=== PATIENT | male | born 1940 | race Hispanic/Latino ===

== ENCOUNTER 2018-11-05 14:07 | Emergency (ER) | payer OTHER ==
[2018-11-05 14:50] LABS: Absolute Lymphocytes (CBC) 1.3 K/uL (0.7-4.9); Absolute Monocytes 0.7 K/uL (0.1-1.3); Absolute Neutrophil 3.3 K/uL (1.8-8.0); Basophils % 0.4 % (0-1.3); Lymphocytes % 24.2 % (15.3-44.8); MPV 8.1 fL (7.6-11.3); Monocytes % 12.2 % (3.3-12.3); RBC Red Blood Cell Count 3.85 M/uL (4.33-5.43)
[2018-11-05 14:58] LABS: ALT/SGPT 19 U/L (12-78); AST/SGOT 21 U/L (15-37); Albumin 3.6 g/dL (3.4-5.0); Alkaline Phosphatase 59 U/L (45-117); BUN Blood Urea Nitrogen 14 mg/dL (7-18); Bicarbonate 25 mmol/L (21-32); Bilirubin Direct 0.3 mg/dL (0-0.2); Bilirubin Total 1.2 mg/dL (0.2-1.0); Glucose Level 118 mg/dL (74-106); NT PRO-BNP 156 pg/mL (<450); Potassium 4.1 mmol/L (3.5-5.1); Protein, Total 7.1 g/dL (6.4-8.2); Protime INR 1.12; Sodium Level 140 mmol/L (136-145); Troponin (Emerg Dept Use Only) < 0.02 ng/mL (0.0-0.045)
--- NOTE | 2018-11-05 15:25 | RAD REPORT ---
EXAM DESCRIPTION: RAD - Chest Single View - 11/05/2018 2:39 pm CLINICAL HISTORY: Chest pain COMPARISON: January 2017 TECHNIQUE: AP portable chest image was obtained 1437 hours . FINDINGS: Lungs are clear. Heart and vasculature are normal. No measurable pleural effusion and no p neumothorax. No acute bony abnormality seen. No acute aortic findings suspected. IMPRESSION: No acute cardiopulmonary process. No significant change from comparison.
--- NOTE | 2018-11-05 18:05 | ER ---
Nurse's Notes [facility] Name: Angelito Ayala Age: 78 yrs Sex: Male : 1940 Arrival Date: 11/05/2018 Time: 14:09 Bed 24 Private MD: Diagnosis: Cough;atypical chest pain Presentation: 11/05 14:09 Presenting complaint: Patient states: i started chest pain last Sunday, feeling of hj tightness, i could hardly speak then; then the pain becomes sharp; reports pain moves to the back; 0/10; denies fever and chills; denies SOB; [facility] eval;. Transition of care: patient was not received from another setting of care. Onset of symptoms was November 05, 2018. Risk Assessment: Do you want to hurt yourself or someone else? Patient reports no desire to harm self or others. Initial Sepsis Screen: Does the patient meet any 2 criteria? No. Patient's initial sepsis screen is negative. Does the patient have a suspected source of infection? No. Patient's initial sepsis screen is negative. 14:09 Method Of Arrival: Ambulatory 14:09 Acuity: TESSY 3 hj 14:14 Care prior to arrival: None. hj Historical: - Allergies: 14:13 No Known Allergies; hj - PMHx: 14:13 benign neoplasm of colon; cardiomyopathy; Cellulitis; Coronary Arteriosclerosis; hj Diabetes - NIDDM; elevated liver function tests; esophageal varices without mention of bleeding; Hyperlipidemia; Hypertension; neck pain; Open Angle Glaucoma; rectal bleeding; sexual dysfunction; TIA; - PSHx: 14:13 coronary stent; hj - Immunization history:: Adult Immunizations up to date. - Social history:: Smoking status: Patient/guardian denies using tobacco. Screenin:37 Abuse screen: Denies threats or abuse. Denies injuries from another. Nutritional aj screening: No deficits noted. Tuberculosis screening: No symptoms or risk factors identified. Fall Risk None identified. Assessment: 14:37 General: Appears in no apparent distress. comfortable, Behavior is calm, cooperative, aj appropriate for age. Pain: Denies pain. Neuro: Level of Consciousness is awake, alert, obeys commands, Oriented to person, place, time, situation, Appropriate for age. Cardiovascular: Reports chest pain, Capillary refill < 3 seconds in bilateral fingers Patient's skin is warm and dry. Chest pain is located in substernal area episodes are intermittent resolved. Respiratory: Reports cough that is Airway is patent Respiratory effort is even, unlabored, Respiratory pattern is regular, symmetrical. Derm: Skin is intact, is healthy with good turgor, Skin is pink, warm \T\ dry. normal. Vital Signs: 14:13 BP 115 / 59; Pulse 59; Resp 18; Temp 98.2(O); Pulse Ox 96% on R/A; Weight 81.65 kg; hj Height 5 ft. 7 in. (170.18 cm); Pain 0/10; 14:50 BP 113 / 64; Pulse 57; Resp 20; Pulse Ox 95% on R/A; aj 16:26 BP 116 / 67; Pulse 58; Resp 16; Pulse Ox 98% on R/A; aj 18:01 BP 109 / 78; Pulse 61; Resp 18; Pulse Ox 97% on R/A; aj 14:13 Body Mass Index 28.19 (81.65 kg, 170.18 cm) ED Course: 14:09 Patient arrived in ED. mr 14:12 Triage completed. hj 14:14 Arm band placed on right wrist. hj 14:15 Jean-Paul Solomon MD is Attending Physician. tw4 14:28 EKG done, by patient care technician. reviewed by Jean-Paul Solomon MD. sm3 14:30 Mackenzie Rinaldi, LAMAR is Primary Nurse. aj 14:34 X-ray completed. Portable x-ray completed in exam room. Patient tolerated procedure sw well. 14:34 Initial lab(s) drawn, by or, sent to lab. Inserted saline lock: 22 gauge in right kj1 antecubital area, using aseptic technique. 14:37 Patient has correct armband on for positive identification. Placed in gown. Bed in low aj position. Call light in reach. Side rails up X 1. Adult w/ patient. gambling monitor on. Pulse ox on. NIBP on. 14:37 Patient maintains SpO2 saturation greater than 95% on room air. aj 14:41 XRAY Chest (1 view) In Process Unspecified. EDMS 18:16 No provider procedures requiring assistance completed. IV discontinued, intact, aj bleeding controlled, No redness/swelling at site. Pressure dressing applied. Administered Medications: No medications were administered Outcome: 18:04 Discharge ordered by . sunny 18:16 Discharged to home ambulatory. carol ann 18:16 Condition: good 18:16 Discharge instructions given to patient, Instructed on discharge instructions, follow up and referral plans. medication usage, Demonstrated understanding of instructions, follow-up care, medications, Prescriptions given X 2. 18:16 Patient left the ED. aj Signatures: Dispatcher [employer] EDMS Mackenzie Rnialdi RN RN aj Rivera, Mary mr OmarKailey Henry, RN RN hj Wadley, Terrence, MD MD tw4 Martha Rios3 Darlene Haq kj1
--- NOTE | 2018-11-05 18:05 | EDPHYS ---
Physician Documentation [facility] Name: Angelito Ayala Age: 78 yrs Sex: Male : 1940 Arrival Date: 11/05/2018 Time: 14:09 Bed 24 Private MD: ED Physician Jean-Paul Solomon HPI: 11/05 16:57 This 78 yrs old Male presents to ER via Ambulatory with complaints of Chest tw4 Pain. 16:57 The patient or guardian reports chest pain that is located primarily in the anterior tw4 chest wall. The pain does not radiate. Associated signs and symptoms: The patient has no apparent associated signs or symptoms. Duration: The patient or guardian reports a single episode. Severity of pain: At its worst the pain was moderate. The patient has not experienced similar symptoms in the past. 17:59 Onset: 2 day(s) ago, and improved 2 days ago. tw4 Historical: - Allergies: 14:13 No Known Allergies; hj - PMHx: 14:13 benign neoplasm of colon; cardiomyopathy; Cellulitis; Coronary Arteriosclerosis; hj Diabetes - NIDDM; elevated liver function tests; esophageal varices without mention of bleeding; Hyperlipidemia; Hypertension; neck pain; Open Angle Glaucoma; rectal bleeding; sexual dysfunction; TIA; - PSHx: 14:13 coronary stent; hj - Immunization history:: Adult Immunizations up to date. - Social history:: Smoking status: Patient/guardian denies using tobacco. ROS: 16:57 Constitutional: Negative for fever, chills, and weight loss, Eyes: Negative for injury, tw4 pain, redness, and discharge, Respiratory: Negative for shortness of breath, cough, wheezing, and pleuritic chest pain, Abdomen/GI: Negative for abdominal pain, nausea, vomiting, diarrhea, and constipation, Back: Negative for injury and pain, MS/Extremity: Negative for injury and deformity, Skin: Negative for injury, rash, and discoloration. Exam: 16:02 Constitutional: This is a well developed, well nourished patient who is awake, alert, tw4 and in no acute distress. Head/Face: Normocephalic, atraumatic. Chest/axilla: Normal chest wall appearance and motion. Nontender with no deformity. No lesions are appreciated. Cardiovascular: Regular rate and rhythm with a normal S1 and S2. No gallops, murmurs, or rubs. Normal PMI, no JVD. No pulse deficits. Respiratory: Lungs have equal breath sounds bilaterally, clear to auscultation and percussion. No rales, rhonchi or wheezes noted. No increased work of breathing, no retractions or nasal flaring. Abdomen/GI: Soft, non-tender, with normal bowel sounds. No distension or tympany. No guarding or rebound. No evidence of tenderness throughout. Back: No spinal tenderness. No costovertebral tenderness. Full range of motion. MS/ Extremity: Pulses equal, no cyanosis. Neurovascular intact. Full, normal range of motion. Neuro: Awake and alert, GCS 15, oriented to person, place, time, and situation. Cranial nerves II-XII grossly intact. Motor strength 5/5 in all extremities. Sensory grossly intact. Cerebellar exam normal. Normal gait. Vital Signs: 14:13 BP 115 / 59; Pulse 59; Resp 18; Temp 98.2(O); Pulse Ox 96% on R/A; Weight 81.65 kg; hj Height 5 ft. 7 in. (170.18 cm); Pain 0/10; 14:50 BP 113 / 64; Pulse 57; Resp 20; Pulse Ox 95% on R/A; aj 16:26 BP 116 / 67; Pulse 58; Resp 16; Pulse Ox 98% on R/A; aj 18:01 BP 109 / 78; Pulse 61; Resp 18; Pulse Ox 97% on R/A; aj 14:13 Body Mass Index 28.19 (81.65 kg, 170.18 cm) MDM: 14:15 Patient medically screened. tw4 16:57 Differential diagnosis: acute myocardial infarction, pulmonary embolus. Data reviewed: tw4 vital signs, nurses notes. Counseling: I had a detailed discussion with the patient and/or guardian regarding: the historical points, exam findings, and any diagnostic results supporting the discharge/admit diagnosis. Special discussion: Based on the patient's history, exam, and Dx evaluation, there is no indication for emergent intervention or inpatient Tx. It is understood by the patient/guardian that if the Sx's persist or worsen they need to return immediately for re-evaluation. I discussed with the patient/guardian in detail that at this point there is no indication for admission to the hospital. It is understood, however, that if the symptoms persist or worsen the patient needs to return immediately for re-evaluation. 11/05 14:16 Order name: Basic Metabolic Panel; Complete Time: 17:59 [facility] 11/05 17:58 Interpretation: Normal except: CL 108; GLUC 118; GFR 67. 11/05 14:16 Order name: CBC with Diff; Complete Time: 17:59 [facility] 11/05 17:58 Interpretation: Normal except: RBC 3.85; HGB 10.9; HCT 33.0; MCV 85.6; RDW 15.5. 11/05 14:16 Order name: LFT's; Complete Time: 17:59 [facility] 11/05 17:59 Interpretation: Normal except: BILIT 1.2; BILID 0.3; A/G 1.0. 11/05 14:16 Order name: Magnesium; Complete Time: 18:00 [facility] 11/05 14:16 Order name: NT PRO-BNP; Complete Time: 18:00 [facility] 11/05 17:59 Interpretation: NT PRO-BNP 156. [facility] 11/05 14:16 Order name: PT-INR; Complete Time: 17:59 [facility] 11/05 17:59 Interpretation: Normal except: PT 13.2. [facility] 11/05 14:14 Order name: EKG - Nurse/Tech; Complete Time: 14:24 11/05 14:16 Order name: Troponin (emerg Dept Use Only) [facility] 11/05 14:16 Order name: XRAY Chest (1 view) [facility] 11/05 14:16 Order name: EKG; Complete Time: 14:18 [facility] 11/05 14:16 Order name: Cardiac monitoring; Complete Time: 14:52 [facility] 11/05 14:16 Order name: EKG - Nurse/Tech; Complete Time: 14:52 [facility] 11/05 14:16 Order name: IV Saline Lock; Complete Time: 14:52 [facility] 11/05 16:54 Order name: Troponin (emerg Dept Use Only) 11/05 14:16 Order name: Labs collected and sent; Complete Time: 14:52 [facility] 11/05 14:16 Order name: O2 Per Protocol; Complete Time: 14:52 [facility] 11/05 14:16 Order name: O2 Sat Monitoring; Complete Time: 14:52 tw4 EC:02 Rate is 54 beats/min. Rhythm is regular. QRS [place] is Normal. QRS interval is normal. QT tw4 interval is normal. No Q waves. T waves are Inverted in lead III. No ST changes noted. Clinical impression: NSR w/ Non-specific ST/T Changes. Interpreted by me. Reviewed by me. Administered Medications: No medications were administered Disposition: 11/05/18 18:04 Discharged to Home. Impression: Cough, atypical chest pain. - Condition is Stable. - Discharge Instructions: Back Pain, Adult, Cool Mist Vaporizer, Allergies, [id number]. - Prescriptions for Tessalon Perles 100 mg Oral Capsule - take 1 capsule by ORAL route every 8 hours As needed; 15 capsule. Tramadol 50 mg Oral Tablet - take 1 tablet by ORAL route every 8 hours as needed; 12 tablet. - Medication Reconciliation Form, Thank You Letter, Antibiotic Education, Prescription Opioid Use form. - Follow up: Private Physician; When: Upon discharge from the Emergency Department; Reason: If symptoms return, Recheck today's complaints, Continuance of care. - Problem is new. - Symptoms have improved. Signatures: Dispatcher [employer] EDMackenzie Avilez RN RN aj Joaquin, Henry, RN RN hj Wadley, Terrence, MD MD tw4 Corrections: (The following items were deleted from the chart) 18:04 16:57 Onset: today, tw4 tw4 18:16 18:04 11/05/2018 18:04 Discharged to Home. Impression: Cough; atypical chest pain. aj Condition is Stable. Forms are Medication Reconciliation Form, Thank You Letter, Antibiotic Education, Prescription Opioid Use. Follow up: Private Physician; When: Upon discharge from the Emergency Department; Reason: If symptoms return, Recheck today's complaints, Continuance of care. Problem is new. Symptoms have improved. tw4
--- NOTE | 2018-11-06 06:18 | EKG ---
Test Date: 2018-11-05 Test Time: 14:25:37 Registered Dietitian: LISET MEASUREMENT RESULTS: Intervals: Rate: 54 ME: 180 QRSD: 138 QT: 472 QTc: 447 [place]: P: 44 ME: 180 QRS: 74 T: 36 INTERPRETIVE STATEMENTS: Sinus bradycardia Right bundle branch block Abnormal ECG Compared to ECG 01/30/2017 17:10:42 Right bundle-branch block now present Sinus rhythm no longer present T-wave abnormality no longer present Electronically Signed On 11-06-18 06:17:10 CDT by Hemanth Castañeda
== END 2018-11-05 18:16 | disposition home or self-care (01) ==
LOC: ER 14:07
DX: R05 Cough (principal); I10 Essential (primary) hypertension; Z95.818 Presence of other cardiac implants and grafts
CPT/HCPCS: 36415; 71045; 80048; 80076; 83735; 83880; 84484; 85025; 85610; 93005; 99285

== ENCOUNTER 2019-06-11 13:28 | Observation (INO) | payer OTHER ==
[2019-06-11 14:38] LABS: Protime INR 1.15
[2019-06-11 14:40] LABS: Absolute Lymphocytes (CBC) 0.7 K/uL (0.7-4.9); Basophils % 0.6 % (0-1.3); Hematocrit 31.1 % (39.6-49.0); Lymphocytes % 14.8 % (15.3-44.8); RBC Red Blood Cell Count 4.11 M/uL (4.33-5.43)
--- NOTE | 2019-06-11 14:42 | EKG ---
Test Date: 2019-06-11 Test Time: 14:11:22 Lathe Operator Contact Lens: SUSAN MEASUREMENT RESULTS: Intervals: Rate: 75 [place]: 178 QRSD: 134 QT: 410 QTc: 457 [place]: P: 53 KS: 178 QRS: 79 T: 33 INTERPRETIVE STATEMENTS: Normal sinus rhythm Right bundle branch block Abnormal ECG Compared to ECG 11/05/2018 14:25:37 Sinus bradycardia no longer present Electronically Signed On 06-11-19 14:41:58 BLANKET CUTTER HAND by Hemanth Castañeda
[2019-06-11] MEDS ORDERED: CEFTRIAXONE 1000 MG/VIAL ONE (14:45)
[2019-06-11] MEDS ORDERED: LEVALBUTEROL 1.25 MG/3 ML NEB ONE (14:45)
[2019-06-11] MEDS ORDERED: IPRATROPIUM BROM 0.5MG/2.5ML ONE (14:45)
[2019-06-11] MEDS ORDERED: AZITHROMYCIN 500 MG INJ IVPB ONE (14:46)
[2019-06-11] MEDS ORDERED: NACHLORIDE 0.45% 0 ML IV ONE (14:46)
[2019-06-11] MEDS ORDERED: NA CHLORIDE 0.9% 1,000 ML ONE (14:47)
[2019-06-11] MEDS ORDERED: ACETAMINOPHEN 325 MG TABLET ONE (14:47)
[2019-06-11] MEDS ORDERED: METHYLPREDNISOLONE 125 MG INJ ONE (14:47)
[2019-06-11 14:55] LABS: Albumin 3.3 g/dL (3.4-5.0); Bilirubin Direct 0.4 mg/dL (0-0.2); Bilirubin Total 1.8 mg/dL (0.2-1.0); Protein, Total 6.8 g/dL (6.4-8.2)
[2019-06-11 14:56] LABS: BUN Blood Urea Nitrogen 11 mg/dL (7-18); Bicarbonate 23 mmol/L (21-32); Glucose Level 191 mg/dL (74-106); Magnesium 1.9 mg/dL (1.8-2.4); NT PRO-BNP 320 pg/mL (<450); Potassium 3.9 mmol/L (3.5-5.1); Sodium Level 137 mmol/L (136-145); Troponin (Emerg Dept Use Only) < 0.02 ng/mL (0.0-0.045)
[2019-06-11] MEDS ORDERED: NA CHLORIDE 0.9% 250 ML ONE (15:22)
--- NOTE | 2019-06-11 15:43 | ER ---
Nurse's Notes [facility] Name: Angelito Ayala Age: 78 yrs Sex: Male : 1940 Arrival Date: 06/11/2019 Time: 13:30 Bed 26 Private MD: Diagnosis: Weakness;Pneumonia due to other specified bacteria;Fever, unspecified;Anemia, unspecified Presentation: 06/11 13:33 Transition of care: patient was not received from another setting of care. sv 13:33 Method Of Arrival: Ambulatory sv 13:33 Presenting complaint: Patient states: intermittent small amount of a productive cough, sv congestion, dizziness x 3 days. Onset of symptoms was June 08, 2019. Care prior to arrival: None. 13:33 Acuity: TESSY 3 sv Historical: - Allergies: 13:32 No Known Allergies; sv - PMHx: 13:32 esophageal varices without mention of bleeding; elevated liver function tests; Coronary sv Arteriosclerosis; Diabetes - NIDDM; Open Angle Glaucoma; rectal bleeding; cardiomyopathy; benign neoplasm of colon; Cellulitis; Hyperlipidemia; Hypertension; neck pain; sexual dysfunction; TIA; - PSHx: 13:32 coronary stent; sv - Family history:: not pertinent. Vital Signs: 13:35 BP 141 / 51; Pulse 74; Resp 20; Temp 100.1; Pulse Ox 97% ; Weight 81.65 kg; Height 5 sv ft. 7 in. (170.18 cm); 13:35 Body Mass Index 28.19 (81.65 kg, 170.18 cm) sv ED Course: 13:30 Patient arrived in ED. as 13:32 Arm band placed on. sv 13:35 Triage completed. sv 13:56 Ivet Zamarripa, RN is Primary Nurse. ls4 13:58 Luek Geiger MD is Attending Physician. osmin 14:16 Initial lab(s) drawn, by vt, sent to lab. First set of blood cultures drawn by me, EKG lt1 done, by sr technical sales consultant. Flu and/or RSV swab sent to lab. 14:21 Inserted saline lock: 22 gauge in right hand, using aseptic technique. lt1 14:23 Influenza Screen (a \T\ B) Sent. lt1 14:24 EKG done, by sr technical sales consultant. reviewed by Luke Geiger MD. tc 14:44 XRAY Chest (1 view) In Process Unspecified. EDMS 14:51 Second set of blood cultures drawn by me. lt1 15:41 Estefania Walker MD is Hospitalizing Provider. osmin Administered Medications: 14:47 Drug: Zithromax 500 mg Route: IVPB; Infused Over: 1 hrs; Site: right hand; ls4 15:20 Follow up: IV Intake: 1000ml ls4 16:49 Follow up: IV Status: Completed infusion; IV Intake: 250ml dm5 14:48 Drug: Rocephin 1 grams Route: IV; Rate: per protocol; Site: right hand; ls4 15:20 Follow up: IV Status: Completed infusion; IV Intake: 1000ml ls4 14:52 Drug: Tylenol 650 mg Route: PO; ls4 15:20 Follow up: Response: No adverse reaction ls4 15:20 Follow up: Response: No adverse reaction; Marked relief of symptoms ls4 14:52 Drug: SOLU-Medrol 125 mg Route: IVP; Site: right hand; ls4 15:20 Follow up: Response: No adverse reaction ls4 16:20 Follow up: Response: No adverse reaction ls4 23:00 Follow up: Response: No adverse reaction ls4 14:53 Drug: NS 0.9% 1000 ml Route: IV; Rate: 125 ml/hr; Site: right hand; ls4 16:00 Follow up: IV Status: Completed infusion; IV Intake: 1000ml ls4 14:53 Drug: Xopenex 2.5 mg Route: Inhalation; ls4 15:20 Follow up: Response: No adverse reaction ls4 14:53 Drug: AtroVENT Aerosol 0.5 mg Route: Inhalation; ls4 15:20 Follow up: Response: No adverse reaction ls4 16:55 Not Given (Duplicate Order): Xopenex 1.25 mg Inhalation once dm5 Intake: 15:20 IV: 1000ml; Total: 1000ml. ls4 15:20 IV: 1000ml; Total: 2000ml. ls4 16:00 IV: 1000ml; Total: 3000ml. ls4 16:49 IV: 250ml; Total: 3250ml. dm5 Outcome: 15:42 Decision to Hospitalize by Provider. osmin 18:12 Patient left the ED. iw Signatures: Dispatcher [employer] Johanne Mitchell RN RN Juhi Landry, RN Luke Cuevas MD MD cha Martinez, Amelia as Audrey Granado, LAMAR RN Conchita Willson, junior oracle dba EKG [facility] Ivet Zamarripa RN RN ls4 Lisa Triplett lt1 Corrections: (The following items were deleted from the chart) 23:18 23:15 IV Status: Completed infusion; IV Intake: 1000ml ls4 ls4
--- NOTE | 2019-06-11 15:43 | EDPHYS ---
Physician Documentation [facility] Name: Angelito Ayala Age: 78 yrs Sex: Male : 1940 Arrival Date: 06/11/2019 Time: 13:30 Bed 26 Private MD: ED Physician Luke Geiger HPI: 06/11 14:27 This 78 yrs old Male presents to ER via Ambulatory with complaints of Cough, osmin Dizziness. 14:27 The patient or guardian reports cough, described as moderate. Onset: The osmin symptoms/episode began/occurred 3 day(s) ago. Severity of symptoms: At their worst the symptoms were mild, in the emergency department the symptoms are unchanged. Modifying factors: The symptoms are alleviated by nothing, the symptoms are aggravated by nothing. Associated signs and symptoms: The patient has no apparent associated signs or symptoms. The patient has not experienced similar symptoms in the past. Historical: - Allergies: 13:32 No Known Allergies; sv - PMHx: 13:32 esophageal varices without mention of bleeding; elevated liver function tests; Coronary sv Arteriosclerosis; Diabetes - NIDDM; Open Angle Glaucoma; rectal bleeding; cardiomyopathy; benign neoplasm of colon; Cellulitis; Hyperlipidemia; Hypertension; neck pain; sexual dysfunction; TIA; - PSHx: 13:32 coronary stent; sv - Family history:: not pertinent. ROS: 14:27 Constitutional: Negative for fever, chills, and weight loss, Eyes: Negative for injury, osmin pain, redness, and discharge, ENT: Negative for injury, pain, and discharge, Neck: Negative for injury, pain, and swelling, Cardiovascular: Negative for chest pain, palpitations, and edema, Abdomen/GI: Negative for abdominal pain, nausea, vomiting, diarrhea, and constipation, Back: Negative for injury and pain, : Negative for injury, bleeding, discharge, and swelling, MS/Extremity: Negative for injury and deformity, Skin: Negative for injury, rash, and discoloration, Psych: Negative for depression, anxiety, suicide ideation, homicidal ideation, and hallucinations, Allergy/Immunology: Negative for hives, rash, and allergies, Endocrine: Negative for neck swelling, polydipsia, polyuria, polyphagia, and marked weight changes, Hematologic/Lymphatic: Negative for swollen nodes, abnormal bleeding, and unusual bruising. 14:27 Respiratory: Positive for cough, shortness of breath, wheezing. 14:27 Neuro: Positive for weakness. Exam: 14:27 Head/Face: Normocephalic, atraumatic. Eyes: Pupils equal round and reactive to light, osmin extra-ocular motions intact. Lids and lashes normal. Conjunctiva and sclera are non-icteric and not injected. Cornea within normal limits. Periorbital areas with no swelling, redness, or edema. ENT: Nares patent. No nasal discharge, no septal abnormalities noted. Tympanic membranes are normal and external auditory canals are clear. Oropharynx with no redness, swelling, or masses, exudates, or evidence of obstruction, uvula midline. Mucous membranes moist. Neck: Trachea midline, no thyromegaly or masses palpated, and no cervical lymphadenopathy. Supple, full range of motion without nuchal rigidity, or vertebral point tenderness. No Meningismus. Chest/axilla: Normal chest wall appearance and motion. Nontender with no deformity. No lesions are appreciated. Cardiovascular: Regular rate and rhythm with a normal S1 and S2. No gallops, murmurs, or rubs. Normal PMI, no JVD. No pulse deficits. Abdomen/GI: Soft, non-tender, with normal bowel sounds. No distension or tympany. No guarding or rebound. No evidence of tenderness throughout. Back: No spinal tenderness. No costovertebral tenderness. Full range of motion. Male : Normal genitalia with no discharge or lesions. Skin: Warm, dry with normal turgor. Normal color with no rashes, no lesions, and no evidence of cellulitis. MS/ Extremity: Pulses equal, no cyanosis. Neurovascular intact. Full, normal range of motion. Neuro: Awake and alert, GCS 15, oriented to person, place, time, and situation. Cranial nerves II-XII grossly intact. Motor strength 5/5 in all extremities. Sensory grossly intact. Cerebellar exam normal. Normal gait. Psych: Awake, alert, with orientation to person, place and time. Behavior, mood, and affect are within normal limits. 14:27 Constitutional: The patient appears febrile. 14:27 Respiratory: the patient does not display signs of respiratory distress, Respirations: normal, no acute changes, Breath sounds: bronchial sounds, rhonchi, wheezing: inspiratory expiratory is scattered. 14:27 Musculoskeletal/extremity: DVT Exam: No signs of deep vein thrombosis. no pain, no swelling, no tenderness, negative Homans' sign noted on exam, no appreciated bluish discoloration, no erythema, no increased warmth. Vital Signs: 13:35 BP 141 / 51; Pulse 74; Resp 20; Temp 100.1; Pulse Ox 97% ; Weight 81.65 kg; Height 5 sv ft. 7 in. (170.18 cm); 13:35 Body Mass Index 28.19 (81.65 kg, 170.18 cm) sv MDM: 13:58 Patient medically screened. [facility] 14:29 Data reviewed: vital signs, nurses notes, lab test result(s), EKG, radiologic studies, [facility] plain films. 06/11 13:57 Order name: CBC with Diff; Complete Time: 15:34 [facility] 06/11 13:57 Order name: Blood Culture Adult (2) [facility] 06/11 13:57 Order name: BMP; Complete Time: 15:34 [facility] 06/11 13:57 Order name: Magnesium; Complete Time: 15:34 [facility] 06/11 13:57 Order name: NT PRO-BNP; Complete Time: 15:34 [facility] 06/11 13:57 Order name: PT-INR; Complete Time: 15:34 [facility] 06/11 13:57 Order name: Ptt, Activated; Complete Time: 15:34 [facility] 06/11 13:57 Order name: Troponin (emerg Dept Use Only); Complete Time: 15:34 [facility] 06/11 13:59 Order name: LFT's; Complete Time: 15:34 [facility] 06/11 13:59 Order name: XRAY Chest (1 view) [facility] 06/11 14:00 Order name: Influenza Screen (a \T\ B); Complete Time: 15:40 [facility] 06/11 13:57 Order name: EKG; Complete Time: 13:58 [facility] 06/11 13:57 Order name: Cardiac monitoring; Complete Time: 14:22 [facility] 06/11 13:57 Order name: EKG - Nurse/Tech; Complete Time: 14:22 [facility] 06/11 13:57 Order name: IV Saline Lock; Complete Time: 14:23 [facility] 06/11 13:57 Order name: Labs collected and sent; Complete Time: 14:23 [facility] 06/11 13:57 Order name: O2 Per Protocol; Complete Time: 14:23 [facility] 06/11 13:57 Order name: O2 Sat Monitoring; Complete Time: 14:23 ls4 Administered Medications: 14:47 Drug: Zithromax 500 mg Route: IVPB; Infused Over: 1 hrs; Site: right hand; ls4 15:20 Follow up: IV Intake: 1000ml ls4 16:49 Follow up: IV Status: Completed infusion; IV Intake: 250ml dm5 14:48 Drug: Rocephin 1 grams Route: IV; Rate: per protocol; Site: right hand; ls4 15:20 Follow up: IV Status: Completed infusion; IV Intake: 1000ml ls4 14:52 Drug: Tylenol 650 mg Route: PO; ls4 15:20 Follow up: Response: No adverse reaction ls4 15:20 Follow up: Response: No adverse reaction; Marked relief of symptoms ls4 14:52 Drug: SOLU-Medrol 125 mg Route: IVP; Site: right hand; ls4 15:20 Follow up: Response: No adverse reaction ls4 16:20 Follow up: Response: No adverse reaction ls4 23:00 Follow up: Response: No adverse reaction ls4 14:53 Drug: NS 0.9% 1000 ml Route: IV; Rate: 125 ml/hr; Site: right hand; ls4 16:00 Follow up: IV Status: Completed infusion; IV Intake: 1000ml ls4 14:53 Drug: Xopenex 2.5 mg Route: Inhalation; ls4 15:20 Follow up: Response: No adverse reaction ls4 14:53 Drug: AtroVENT Aerosol 0.5 mg Route: Inhalation; ls4 15:20 Follow up: Response: No adverse reaction ls4 16:55 Not Given (Duplicate Order): Xopenex 1.25 mg Inhalation once dm5 Disposition: 06/11/19 15:42 Hospitalization ordered by Estefania Walker for Inpatient Admission. Preliminary diagnosis are Weakness, Pneumonia due to other specified bacteria, Fever, unspecified, Anemia, unspecified. - Bed requested for Telemetry/MedSurg (Inpatient). - Status is Inpatient Admission. iw - Condition is Fair. - Problem is new. - Symptoms have improved. UTI on Admission? No Signatures: Dispatcher [employer] EDMary Bansal Stephanie, RN RN sv Anderson, Corey, MD MD cha Williams, Irene, RN RN iw Ivet Zamarripa RN RN ls4 Johanne Mccarty RN dm5 Corrections: (The following items were deleted from the chart) 16:36 15:42 Hospitalization Ordered by Estefania Walker MD for Inpatient Admission. Preliminary bd diagnosis is Weakness; Pneumonia due to other specified bacteria; Fever, unspecified; Anemia, unspecified. Bed requested for Telemetry/MedSurg (Inpatient). Status is Inpatient Admission. Condition is Fair. Problem is new. Symptoms have improved. UTI on Admission? No. osmin 18:12 16:36 06/11/2019 15:42 Hospitalization Ordered by Estefania Walker MD for Inpatient iw Admission. Preliminary diagnosis is Weakness; Pneumonia due to other specified bacteria; Fever, unspecified; Anemia, unspecified. Bed requested for Telemetry/MedSurg (Inpatient). Status is Inpatient Admission. Condition is Fair. Problem is new. Symptoms have improved. UTI on Admission? No. bd
[2019-06-11] MEDS ORDERED: ALBUTEROL 2.5 MG/3 ML NEB SOL NEB PRN (16:17)
--- NOTE | 2019-06-11 16:22 | P.HP ---
Certification for Inpatient Patient admitted to: Observation Practitioner: I am a practitioner with admitting privileges, knowledge of patient current condition, hospital course, and medical plan of care. Services: Services provided to patient in accordance with Admission requirements found in Title 42 Section 412.3 of the Code of Federal Regulations Patient History Date of Service: 06/11/19 Reason for admission: Ill Feeling History of Present Illness: Mr Ayala is a 78-year-old male with a history of CAD status post multiple stents, anemia, hypertension and diabetes who presented to the ER with complaints of 4 days history of progressive weakness, malaise, fatigue, subjective fever and productive cough. Patient is unable to characterize his cough. He also reported of shortness of breath that developed today, prompting him to present to the ER. He denies any sick contacts. Patient had colonoscopy on 06/02/2019 and 6 polyps were removed. Patient denies melena or overt blood loss. Allergies No Known Allergies Allergy (Unverified 01/31/17 07:35) Home Medications: Aspirin [Aspirin EC 81 MG] 1 tab PO DAILY 01/31/17 Clopidogrel Bisulfate [Plavix*] 1 tab PO DAILY 01/31/17 Ferrous Gluconate 1 tab PO BID 01/31/17 Isosorbide Mononitrate [Isosorbide Mononitrate ER] 3 tab PO DAILY 01/31/17 Lisinopril [Zestril] 1 tab PO DAILY 01/31/17 Metformin HCl [Glucophage*] 1 tab PO BID 01/31/17 Metoprolol Tartrate [Lopressor*] 12.5 mg PO Q12H 01/31/17 Pantoprazole Sodium [Protonix] 40 mg PO DAILY #30 tablet. 01/31/17 Rosuvastatin Calcium [Crestor] 20 mg PO BEDTIME 01/31/17 Tamsulosin HCl [Flomax] 1 tab PO BEDTIME 01/31/17 - Past Medical/Surgical History Diabetic: Yes -: CAD -: HTN -: Appendectomy - Family History Father -: Hypertension Mother -: Hypertension - Social History Alcohol use: No CD- Drugs: No Caffeine use: Yes Review of Systems 10-point ROS is otherwise unremarkable General: Fever, Chills, Weakness, Malaise Respiratory: Cough, Shortness of Breath, Sputum Physical Examination - Physical Exam General: Alert, In no apparent distress HEENT: Atraumatic, PERRLA, Mucous membr. moist/pink, EOMI, Sclerae nonicteric Neck: Supple, 2+ carotid pulse no bruit, No LAD, Without JVD or thyroid abnormality Respiratory: Clear to auscultation bilaterally, Normal air movement Cardiovascular: Regular rate/rhythm, Normal S1 S2 Gastrointestinal: Normal bowel sounds, No tenderness Musculoskeletal: No tenderness Integumentary: No rashes Neurological: Normal gait, Normal speech, Normal strength at 5/5 x4 extr, Normal tone, Normal affect Lymphatics: No axilla or inguinal lymphadenopathy - Studies Laboratory Data (last 24 hrs) 06/11/19 14:16: Total Bilirubin 1.8 H, AST 41 H, ALT 30, Alkaline Phosphatase 71 06/11/19 14:16: PT 13.5 H, INR 1.15, APTT 30.5 06/11/19 14:16: Sodium 137, Potassium 3.9, BUN 11, Creatinine 1.17, Glucose 191 H, Magnesium 1.9 06/11/19 14:16: WBC 5.0, Hgb 9.9 L, Hct 31.1 L, Plt Count 124 L Microbiology Data (last 24 hrs): 06/11/19 14:16 Nasopharnyx Influenza Type A Antigen Screen - Final 06/11/19 14:16 Nasopharnyx Influenza Type B Antigen Screen - Final Assessment and Plan - Plan Mr. Ayala is 78y/o male presented with a generalized ill feeling. # URI-influenza swab is negative. Chest x-ray is unremarkable. -patient has a productive cough, will obtain sputum culture. -hydrate intravenously given generalized weakness. -azithromycin for respiratory infection -supplemental oxygen, DuoNeb PRN -no leukocytosis. Monitor for fever. # CAD status post multiple stents-on resume home medication. -continue optimize medical therapy. -patient denies any chest pain. #Diabetes mellitus-check hemoglobin A1c. -hold metformin. -BG AC and HS and cover with insulin sliding scale. # Mypertension-resume antihypertensive -monitor blood pressure closely. #Microcytic anemia-will check iron studies. Patient denies any melena. -recent colonoscopy 06/02/19 -trend H and H and transfuse as indicated. DVT prophylaxis-SCD Patient is full code however he does not want to be shocked if needed. Dispo- obs admission. anticipate dc in a.m - Advance Directives Does patient have a Living Will: Yes Does patient have a Durable POA for Healthcare: Yes
--- NOTE | 2019-06-11 16:37 | RAD REPORT ---
EXAM DESCRIPTION: [facility]ia Single View06/11/2019 2:44 pm CLINICAL HISTORY: cough COMPARISON: October 2018 FINDINGS: The lungs appear clear of acute infiltrate. The heart is normal size IMPRESSION: No acute abnormalities displayed
[2019-06-11 17:39] VITALS: BMI 28.1
[2019-06-11] MEDS ORDERED: GLUCAGON 1 MG/VIAL IM PRN (18:43)
[2019-06-11] MEDS ORDERED: D50W 25 GM/50 ML SYRINGE/VIAL IV PRN (18:43)
[2019-06-11] MEDS ORDERED: NA CHLORIDE 0.9% 1,000 ML IV SCH (18:43)
[2019-06-11] MEDS: METOPROLOL TAR 25 MG TAB PO SCH (19:03)
[2019-06-11] MEDS: INSULIN -REGULAR HUMAN 50 UNIT/0.5 ML ML SQ SCH (20:29)
[2019-06-11] MEDS ORDERED: HOME MED 1 EA UNK (Ferrous Gluconate [Ferrous Gluconate] 1 TAB) PO SCH (21:00)
[2019-06-11] MEDS ORDERED: TAMSULOSIN 0.4 MG SR CAP PO SCH (21:00)
[2019-06-11] MEDS ORDERED: HOME MED 1 EA UNK (Rosuvastatin Calcium [Crestor] 20 MG) PO SCH (21:00)
[2019-06-11] MEDS ORDERED: ROSUVASTATIN 10 MG TAB PO SCH (21:00)
[2019-06-12 02:46] LABS: Urine Appearance CLEAR; Urine Bilirubin NEGATIVE (NEG); Urine Blood NEGATIVE (NEG); Urine Color YELLOW; Urine Glucose 2+ (NEG); Urine Protein 1+ (NEG); Urine Specific Gravity 1.015 (1.005-1.030); Urine Urobilinogen 0.2 mg/dL (0.2-1.0); Urine pH 5.5 (5.0-7.0)
[2019-06-12 02:47] LABS: Urine Microscopic Reflex ORDER UMIC
[2019-06-12 03:33] LABS: Urine Bacteria <20 /HPF (NONE SEEN); Urine Culture Reflex Order NOT NEEDED; Urine RBC <5 /HPF (NONE SEEN)
[2019-06-12 04:22] LABS: Absolute Lymphocytes (CBC) 0.4 K/uL (0.7-4.9); Basophils % 0.1 % (0-1.3); Hematocrit 30.9 % (39.6-49.0); MPV 8.1 fL (7.6-11.3); RBC Red Blood Cell Count 4.07 M/uL (4.33-5.43)
[2019-06-12 04:38] LABS: Albumin 3.3 g/dL (3.4-5.0); Bilirubin Total 1.2 mg/dL (0.2-1.0); Potassium 4.4 mmol/L (3.5-5.1); Protein, Total 7.3 g/dL (6.4-8.2)
[2019-06-12 07:26] VITALS: O2SAT 96
[2019-06-12] MEDS ORDERED: PANTOPRAZOLE 40MG TABLET PO SCH (07:30)
[2019-06-12 08:03] VITALS: TEMP 97.6
[2019-06-12] MEDS: METOPROLOL TAR 25 MG TAB PO SCH (08:50)
[2019-06-12] MEDS: INSULIN -REGULAR HUMAN 50 UNIT/0.5 ML ML SQ SCH ×2 (08:51→11:22)
[2019-06-12] MEDS ORDERED: CLOPIDOGREL 75 MG TABLET PO SCH (09:00)
[2019-06-12] MEDS ORDERED: ASPIRIN EC 81 MG TAB PO SCH (09:00)
[2019-06-12] MEDS ORDERED: FERROUS GLUCONATE 324 MG TAB PO SCH (09:00)
[2019-06-12] MEDS ORDERED: AZITHROMYCIN IV 500 MG in NA CHLORIDE 0.9% 250 ML IVPB SCH (09:00)
[2019-06-12] MEDS ORDERED: predniSONE 10 MG TAB PO SCH (10:27)
[2019-06-12 12:03] VITALS: BP 157/72
[2019-06-12] MEDS ORDERED: GUAIFENESIN/DM 5 ML UCUP PO PRN (12:21)
--- NOTE | 2019-06-12 12:52 | P.DS ---
Admission Date: 06/11/19 Discharge Date: 06/12/19 Disposition: ROUTINE DISCHARGE Discharge Condition: GOOD Reason for Admission: Ill Feeling Brief History of Present Illness: Mr Ayala is a 78-year-old male with a history of CAD status post multiple stents, anemia, hypertension and diabetes who presented to the ER with complaints of 4 days history of progressive weakness, malaise, fatigue, subjective fever and productive cough. Patient is unable to characterize his cough. He also reported of shortness of breath that developed today, prompting him to present to the ER. He denies any sick contacts. Patient had colonoscopy on 06/02/2019 and 6 polyps were removed. Patient denies melena or overt blood loss. Admission diagnosis Upper respiratory infection CAD status post stents diabetes mellitus. Hypertension Microcytic anemia Discharge diagnosis Same Hospital Course: Mr. Ayala is a 78-year-old male who presented with generalized ill feeling and cough. Initial evaluation with chest Xray ruled out cardiopulmonary process. Patient evidently had upper respiratory infection. Flu swab was negative. He reported productive cough however was unable to provide a sputum sample for sputum analysis/ culture. Given generalized weakness, he was hydrated intravenously and did improve. He has been started on azithromycin for upper respiratory infection. Patient was also wheezing; not hypoxic, therefore initiated on steroid pack. He is also started on antitussive due to significant cough. Patient's lab revealed microcytic anemia however he reports a recent colonoscopy. He will follow up with his PCP for further care. He remained hemodynamically stable for discharge. Vital Signs/Physical Exam: Temp Pulse Resp BP Pulse Ox 97.6 F 84 16 157/72 H 94 06/12/19 12:00 06/12/19 12:00 06/12/19 12:00 06/12/19 12:00 06/12/19 12:00 General: Alert, In no apparent distress HEENT: Atraumatic, PERRLA, EOMI Neck: Supple, JVD not distended Respiratory: Clear to auscultation bilaterally, Normal air movement Cardiovascular: Regular rate/rhythm, Normal S1 S2 Gastrointestinal: Normal bowel sounds, No tenderness Musculoskeletal: No tenderness Integumentary: No rashes Neurological: Normal speech, Normal tone, Normal affect Lymphatics: No axilla or inguinal lymphadenopathy Laboratory Data at Discharge: WBC 3.2 K/uL (4.3-10.9) L D 06/12/19 03:40 Hgb 9.9 g/dL (13.6-17.9) L 06/12/19 03:40 Hct 30.9 % (39.6-49.0) L 06/12/19 03:40 Plt Count 108 K/uL (152-406) L 06/12/19 03:40 PT 13.5 SECONDS (9.5-12.5) H 06/11/19 14:16 INR 1.15 06/11/19 14:16 APTT 30.5 SECONDS (24.3-36.9) 06/11/19 14:16 Sodium 142 mmol/L (136-145) 06/12/19 03:40 Potassium 4.4 mmol/L (3.5-5.1) 06/12/19 03:40 BUN 13 mg/dL (7-18) 06/12/19 03:40 Creatinine 1.07 mg/dL (0.55-1.3) 06/12/19 03:40 Glucose 266 mg/dL (74-106) H 06/12/19 03:40 Magnesium 1.9 mg/dL (1.8-2.4) 06/11/19 14:16 Total Bilirubin 1.2 mg/dL (0.2-1.0) H 06/12/19 03:40 AST 33 U/L (15-37) 06/12/19 03:40 ALT 28 U/L (12-78) 06/12/19 03:40 Alkaline Phosphatase 73 U/L (45-117) 06/12/19 03:40 Home Medications: Aspirin [Aspirin EC 81 MG] 1 tab PO DAILY 01/31/17 Clopidogrel Bisulfate [Plavix*] 1 tab PO DAILY 01/31/17 Lisinopril [Zestril] 5 mg PO DAILY 01/31/17 Metformin HCl [Glucophage*] 850 tab PO BID 01/31/17 Tamsulosin HCl [Flomax] 1 tab PO BEDTIME 01/31/17 Azithromycin Tab [Zithromax*] 250 mg PO ZPAK #1 frank 06/12/19 Guaifenesin/Dextromethorphan [Robitussin Nlzmo-Smmck-Taxd Dm] 1 each PO Q6HR PRN #30 capsule 06/12/19 Isosorbide Mononitrate [Isosorbide Mononitrate ER] 3 tab PO DAILY 06/12/19 Latanoprost/Pf [Latanoprost 0.005% Eye Drop] 1 gtt OPTH BEDTIME 06/12/19 Methylprednisolone [Medrol dosepack] 4 mg PO DIRECTED #1 frank 06/12/19 Pantoprazole Sodium 20 mg PO DAILY 06/12/19 Pravastatin Sodium 20 mg PO BEDTIME 06/12/19 carvediloL [Carvedilol] 1 tab PO BID 06/12/19 New Medications: Azithromycin Tab [Zithromax*] 250 mg PO ZPAK #1 frank Guaifenesin/Dextromethorphan [Robitussin Eqeps-Vszqj-Xvdz Dm] 1 each PO Q6HR PRN #30 capsule PRN Reason: Cough Methylprednisolone [Medrol dosepack] 4 mg PO DIRECTED #1 frank Diet: AHA Activity: Ad maged
[2019-06-12] MEDS ORDERED: PNEUMOCOCCAL VACCINE 0.5 ML IMVAC ONE (15:00)
[2019-06-12] MEDS ORDERED: METFORMIN HCL 850 MG TAB PO SCH (17:00)
[2019-06-12] MEDS ORDERED: carvediloL 6.25 MG TAB PO SCH (21:00)
[2019-06-12] MEDS ORDERED: ATORVASTATIN 10 MG TAB PO SCH (21:00)
[2019-06-12] MEDS ORDERED: HOME MED 1 EA UNK (Latanoprost/Pf [Latanoprost 0.005% Eye Drop] 1 GTT) OPTH SCH (21:00)
[2019-06-13] MEDS ORDERED: AMLODIPINE 5 MG TAB PO SCH (09:00)
[2019-06-13] MEDS ORDERED: ISOSORBIDE MONO SR 30 MG TAB PO SCH (09:00)
[2019-06-13] MEDS ORDERED: PANTOPRAZOLE SODIUM 20 MG PO SCH (09:00)
[2019-06-13] MEDS ORDERED: lisinopriL 5 MG TAB PO SCH (09:00)
== END 2019-06-12 15:20 | disposition home or self-care (01) ==
LOC: ER 13:28 → ERHOLD 16:18 → 4TH 17:01
PROVIDERS: ADMIT Hospitalist; ATTEND Hospitalist
DX: J06.9 Acute upper respiratory infection, unspecified (principal); I25.10 Atherosclerotic heart disease of native coronary artery without angina pectoris; E11.9 Type 2 diabetes mellitus without complications; I10 Essential (primary) hypertension; D50.9 Iron deficiency anemia, unspecified; Z95.5 Presence of coronary angioplasty implant and graft; Z79.82 Long term (current) use of aspirin
CPT/HCPCS: 96365; 96368; 93005; 87040 ×2; 85025 ×2; 80048; 36415; 83735; 85610; 82947 ×3; 80076; 85730; 83036; 84484; 80053; 83880; 87804 ×2; 71045; 94760 ×2; 96375; 99284; 96366; J0456 ×2; J7030 ×4; J2930; G0378 ×3; 81003; 81015; J7512

== ENCOUNTER 2021-03-10 14:09 | Emergency (ER) | payer OTHER ==
--- NOTE | 2021-03-10 16:39 | ER ---
Nurse's Notes [facility] Name: Angelito Ayala Age: 80 yrs Sex: Male : 1940 Arrival Date: 03/10/2021 Time: 14:15 Bed 24 Private MD: Diagnosis: Streptococcal pharyngitis;Fever, unspecified Presentation: 03/10 14:27 Chief complaint: Patient states: he doesn't' feel well. He states he has a sore throat, ap3 cough and chills. Patient states this started 03/08/2021. Coronavirus screen: Client presents with at least one sign or symptom that may indicate coronavirus-19. Standard/surgical mask placed on the client. Ebola Screen: No symptoms or risks identified at this time. Initial Sepsis Screen:. Initial Sepsis Screen: Does the patient meet any 2 criteria? No. Patient's initial sepsis screen is negative. Does the patient have a suspected source of infection? No. Patient's initial sepsis screen is negative. Risk Assessment: Do you want to hurt yourself or someone else? Patient reports no desire to harm self or others. Onset of symptoms was March 08, 2021. 14:27 Method Of Arrival: Ambulatory ap3 14:27 Acuity: TESSY 4 ap3 Triage Assessment: 14:32 General: Appears comfortable, Behavior is calm, cooperative, Reports chills for 2-3 ap3 days, feeling ill for 2-3 days, fatigue for 2-3 days. Pain: Denies pain. EENT: Reports nasal congestion. Neuro: Level of Consciousness is awake, alert, obeys commands, Oriented to person, place, time, situation, Appropriate for age Gait is steady, Speech is normal. Cardiovascular: Denies chest pain, Capillary refill < 3 seconds Patient's skin is warm and dry. Respiratory: Airway is patent Respiratory effort is even, unlabored, Respiratory pattern is regular, symmetrical. Historical: - Allergies: 14:31 No Known Allergies; ap3 - PMHx: 14:31 Diabetes - NIDDM; Hypertension; Hyperlipidemia; benign neoplasm of colon; ap3 cardiomyopathy; Cellulitis; Coronary Arteriosclerosis; elevated liver function tests; esophageal varices without mention of bleeding; neck pain; Open Angle Glaucoma; rectal bleeding; sexual dysfunction; TIA; - PSHx: 14:31 None; ap3 - Immunization history:: Client reports receiving the 2nd dose of the Covid vaccine. - Social history:: Smoking status: Patient denies any tobacco usage or history of. Screenin:33 Abuse screen: Denies threats or abuse. Nutritional screening: No deficits noted. ap3 Tuberculosis screening: No symptoms or risk factors identified. 15:37 Fall Risk None identified. ld1 Assessment: 15:37 General: Appears in no apparent distress. comfortable, Behavior is calm, cooperative, ld1 appropriate for age. Pain: Denies pain. Neuro: Level of Consciousness is awake, alert, obeys commands, Oriented to person, place, time, situation. Cardiovascular: Capillary refill < 3 seconds Patient's skin is warm and dry. Respiratory: Airway is patent Respiratory effort is even, unlabored, Respiratory pattern is regular, symmetrical, Breath sounds are clear bilaterally. GI: Abdomen is flat, non-distended. : No signs and/or symptoms were reported regarding the genitourinary system. EENT: Throat is pink Reports. Derm: No signs and/or symptoms reported regarding the dermatologic system. Musculoskeletal: No signs and/or symptoms reported regarding the musculoskeletal system. Vital Signs: 14:27 BP 169 / 77 RA (auto/reg); Pulse 72; Resp 17; Temp 98.5(TE); Pulse Ox 97% on R/A; ap3 Weight 81.65 kg; Height 5 ft. 7 in. (170.18 cm); 15:37 BP 156 / 73; Pulse 73; Resp 18; Pulse Ox 98% on R/A; ld1 14:27 Body Mass Index 28.19 (81.65 kg, 170.18 cm) ap3 ED Course: 14:15 Patient arrived in ED. mr 14:31 Triage completed. ap3 14:34 Arm band placed on left wrist. ap3 14:56 Patient placed in an exam room, on a stretcher. ll1 14:57 Luke Geiger MD is Attending Physician. osmin 15:37 Patient has correct armband on for positive identification. Placed in gown. Bed in low ld1 position. Call light in reach. Side rails up X2. Pulse ox on. NIBP on. Door closed. Noise minimized. Warm blanket given. 15:37 No provider procedures requiring assistance completed. ld1 16:31 Dibbern, Laura, RN is Primary Nurse. ld1 16:46 Patient did not have IV access during this emergency room visit. ld1 Administered Medications: 16:40 Drug: Augmentin (Amoxicillin-Clavulanate) 875 mg Route: PO; ld1 16:40 Drug: Tylenol 1000 mg Route: PO; ld1 16:40 Drug: Rocephin (cefTRIAXone) 1 grams Route: IM; Site: left gluteus; ld1 Outcome: 16:39 Discharge ordered by MD. solorio 16:46 Discharged to home ambulatory. ld1 16:46 Condition: stable 16:46 Discharge instructions given to patient, Instructed on discharge instructions, follow up and referral plans. medication usage, Demonstrated understanding of instructions, follow-up care, medications. 16:47 Patient left the ED. ld1 Signatures: Luke Geiger MD MD cha Rivera, Annette mr FryeMackenzie, RN RN [email or web address] Lorin Cottrell RN RN ll1 Laura Borrego RN RN ld1
--- NOTE | 2021-03-10 16:39 | EDPHYS ---
Physician Documentation [facility] Name: Angelito Ayala Age: 80 yrs Sex: Male : 1940 Arrival Date: 03/10/2021 Time: 14:15 Bed 24 Private MD: ED Physician Luke Geiger HPI: 03/10 16:30 This 80 yrs old Male presents to ER via Ambulatory with complaints of Cough, osmin Sore Throat, Fever. 16:30 The patient or guardian reports cough, flu symptoms, arthralgias, low-grade fever, osmin myalgias. Onset: The symptoms/episode began/occurred 2 day(s) ago. Severity of symptoms: At their worst the symptoms were mild, in the emergency department the symptoms are unchanged. Modifying factors: The symptoms are alleviated by nothing. Associated signs and symptoms: Pertinent positives: fever, rhinorrhea, sore throat. The patient has experienced similar episodes in the past, a few times. Historical: - Allergies: 14:31 No Known Allergies; ap3 - PMHx: 14:31 Diabetes - NIDDM; Hypertension; Hyperlipidemia; benign neoplasm of colon; ap3 cardiomyopathy; Cellulitis; Coronary Arteriosclerosis; elevated liver function tests; esophageal varices without mention of bleeding; neck pain; Open Angle Glaucoma; rectal bleeding; sexual dysfunction; TIA; - PSHx: 14:31 None; ap3 - Immunization history:: Client reports receiving the 2nd dose of the Covid vaccine. - Social history:: Smoking status: Patient denies any tobacco usage or history of. ROS: 16:33 Eyes: Negative for injury, pain, redness, and discharge, Neck: Negative for injury, osmin pain, and swelling, Cardiovascular: Negative for chest pain, palpitations, and edema, Respiratory: Negative for shortness of breath, cough, wheezing, and pleuritic chest pain, Abdomen/GI: Negative for abdominal pain, nausea, vomiting, diarrhea, and constipation, Back: Negative for injury and pain, : Negative for injury, bleeding, discharge, and swelling, MS/Extremity: Negative for injury and deformity, Skin: Negative for injury, rash, and discoloration, Neuro: Negative for headache, weakness, numbness, tingling, and seizure, Psych: Negative for depression, anxiety, suicide ideation, homicidal ideation, and hallucinations, Allergy/Immunology: Negative for hives, rash, and allergies, Endocrine: Negative for neck swelling, polydipsia, polyuria, polyphagia, and marked weight changes, Hematologic/Lymphatic: Negative for swollen nodes, abnormal bleeding, and unusual bruising. 16:33 Constitutional: Positive for fever. 16:33 ENT: Positive for rhinorrhea, sore throat. Exam: 16:33 Constitutional: This is a well developed, well nourished patient who is awake, alert, osmin and in no acute distress. Head/Face: Normocephalic, atraumatic. Eyes: Pupils equal round and reactive to light, extra-ocular motions intact. Lids and lashes normal. Conjunctiva and sclera are non-icteric and not injected. Cornea within normal limits. Periorbital areas with no swelling, redness, or edema. Neck: Trachea midline, no thyromegaly or masses palpated, and no cervical lymphadenopathy. Supple, full range of motion without nuchal rigidity, or vertebral point tenderness. No Meningismus. Chest/axilla: Normal chest wall appearance and motion. Nontender with no deformity. No lesions are appreciated. Cardiovascular: Regular rate and rhythm with a normal S1 and S2. No gallops, murmurs, or rubs. Normal PMI, no JVD. No pulse deficits. Respiratory: Lungs have equal breath sounds bilaterally, clear to auscultation and percussion. No rales, rhonchi or wheezes noted. No increased work of breathing, no retractions or nasal flaring. Abdomen/GI: Soft, non-tender, with normal bowel sounds. No distension or tympany. No guarding or rebound. No evidence of tenderness throughout. Back: No spinal tenderness. No costovertebral tenderness. Full range of motion. Skin: Warm, dry with normal turgor. Normal color with no rashes, no lesions, and no evidence of cellulitis. MS/ Extremity: Pulses equal, no cyanosis. Neurovascular intact. Full, normal range of motion. Neuro: Awake and alert, GCS 15, oriented to person, place, time, and situation. Cranial nerves II-XII grossly intact. Motor strength 5/5 in all extremities. Sensory grossly intact. Cerebellar exam normal. Normal gait. Psych: Awake, alert, with orientation to person, place and time. Behavior, mood, and affect are within normal limits. 16:33 ENT: Posterior pharynx: Tonsils: bilaterally enlarged, with erythema, Uvula: normal, midline, swelling, is not appreciated, that is moderate, erythema, that is mild, exudate, is not appreciated. 16:33 Respiratory: the patient does not display signs of respiratory distress, Respirations: normal, Breath sounds: are clear throughout, Respiratory rate: 18 Vital Signs: 14:27 BP 169 / 77 RA (auto/reg); Pulse 72; Resp 17; Temp 98.5(TE); Pulse Ox 97% on R/A; ap3 Weight 81.65 kg; Height 5 ft. 7 in. (170.18 cm); 15:37 BP 156 / 73; Pulse 73; Resp 18; Pulse Ox 98% on R/A; ld1 14:27 Body Mass Index 28.19 (81.65 kg, 170.18 cm) ap3 MDM: 14:57 Patient medically screened. osmin 16:35 Differential diagnosis: viral Infection, bacterial infection, URI, bronchitis, osmin pneumonia UTI. Differential Diagnosis: Bronchitis Influenza Sinusitis Pharyngitis Otitis Media Allergic Rhinitis Asthma Exacerbation Pneumonia. Data reviewed: vital signs, nurses notes, lab test result(s). 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 Counseling: I had a detailed discussion with the patient and/or guardian regarding: the historical points, exam findings, and any diagnostic results supporting the discharge/admit diagnosis, lab results. 03/10 14:38 Order name: Flu; Complete Time: 16:26 kb 03/10 14:38 Order name: Strep; Complete Time: 16:26 kb 03/10 15:15 Order name: SARS-COV-2 RT PCR; Complete Time: 16:26 EDMS 03/10 16:27 Order name: PO challenge; Complete Time: 16:40 osmin 03/10 16:35 Order name: Blood Glucose Level; Complete Time: 16:46 osmin Administered Medications: 16:40 Drug: Augmentin (Amoxicillin-Clavulanate) 875 mg Route: PO; ld1 16:40 Drug: Tylenol 1000 mg Route: PO; ld1 16:40 Drug: Rocephin (cefTRIAXone) 1 grams Route: IM; Site: left gluteus; ld1 Disposition Summary: 03/10/21 16:39 Discharge Ordered Location: Home [facility] Problem: new [facility] Symptoms: have improved [facility] Condition: Stable [facility] Diagnosis - Streptococcal pharyngitis osmin - Fever, unspecified osmin Followup: [facility] - With: Private Physician - When: 2 - 3 days - Reason: Recheck today's complaints, Continuance of care, Re-evaluation by your physician Discharge Instructions: - Discharge Summary Sheet osmin - Fever, Adult osmin - Pharyngitis osmin - Sore Throat osmin - Strep Throat, Adult [facility] Forms: - Medication Reconciliation Form [facility] - Thank You Letter [facility] - Antibiotic Education [facility] - Prescription Opioid Use [facility] Prescriptions: - Augmentin 875-125 mg Oral Tablet - take 1 tablet by ORAL route every 12 hours for 10 days; 20 tablet; Refills: 0, [facility] Product Selection Permitted - Medrol (Perez) 4 mg Oral Tablets, Dose Pack - take 1 tablet by ORAL route as directed - follow package instructions; 1 osmin packet; Refills: 0, Product Selection Permitted Signatures: Dispatcher [employer] EDLuke Vang MD MD cha Prokisch, Amanda RN RN ap3 Laura Borrego RN RN ld1 Corrections: (The following items were deleted from the chart) 15:15 14:39 CORONAVIRUS+[email or web address] ordered. EDNM EDMS
[2021-03-10] MEDS ORDERED: ACETAMINOPHEN 500 MG TAB ONE (16:58)
[2021-03-10] MEDS ORDERED: AMOX/K CLAV 875 MG TAB ONE (16:59)
[2021-03-10] MEDS ORDERED: CEFTRIAXONE 1000 MG/VIAL ONE (16:59)
[2021-03-10 17:01] VITALS: TEMP 98.5
[2021-03-10 17:02] VITALS: BP 156/73; O2SAT 98
== END 2021-03-10 16:47 | disposition home or self-care (01) ==
LOC: ER 14:09
DX: J02.0 Streptococcal pharyngitis (principal); I10 Essential (primary) hypertension; E11.9 Type 2 diabetes mellitus without complications; Z20.822 Contact with and (suspected) exposure to COVID-19
CPT/HCPCS: 82947; 87081; 87804 ×2; 96372; 99283; U0003

== ENCOUNTER 2022-09-28 15:27 | Emergency (ER) | payer OTHER ==
[2022-09-28] MEDS ORDERED: ALBUTEROL 2.5 MG/3 ML NEB SOL ONE ×2 (16:23→17:36)
[2022-09-28] MEDS ORDERED: ACETAMINOPHEN 500 MG TAB ONE (16:23)
[2022-09-28 16:25] LABS: Absolute Lymphocytes (CBC) 0.5 K/uL (0.7-4.9); Hematocrit 30.1 % (39.6-49.0); Lymphocytes % 6.6 % (15.3-44.8); MPV 7.2 fL (7.6-11.3); RBC Red Blood Cell Count 3.72 M/uL (4.33-5.43)
[2022-09-28 16:28] LABS: Protime INR 1.21
[2022-09-28 16:35] LABS: Albumin 3.4 g/dL (3.4-5.0); Bilirubin Total 2.1 mg/dL (0.2-1.0); Protein, Total 6.9 g/dL (6.4-8.2)
[2022-09-28] MEDS ORDERED: BENZONATATE 100 MG CAP PO ONE (16:50)
--- NOTE | 2022-09-28 17:27 | RAD REPORT ---
EXAM DESCRIPTION: RAD - Chest Single View - 09/28/2022 5:13 pm CLINICAL HISTORY: COUGH Chest pain. COMPARISON: Chest Single View dated 03/17/2021; Chest Single View dated 06/11/2019; Chest Single View dated 11/05/2018; Chest Single View dated 01/30/2017 FINDINGS: Portable technique limits examination quality. Moderate bilateral pulmonary opacities may represent pulmonary edema or pneumonia. The heart is mildl y enlarged in size. No displaced fractures.Aortic atherosclerosis.
[2022-09-28] MEDS ORDERED: METHYLPREDNISOLONE 125 MG INJ ONE (17:33)
[2022-09-28] MEDS ORDERED: AZITHROMYCIN 500 MG INJ IVPB ONE (18:13)
[2022-09-28] MEDS ORDERED: HYDROCODONE/CHLORPHEN 5 ML/OSYR ONE (18:13)
[2022-09-28] MEDS ORDERED: CEFTRIAXONE 1000 MG/VIAL ONE (18:13)
[2022-09-28] MEDS ORDERED: NA CHLORIDE 0.9% 250 ML ONE (18:14)
[2022-09-28] MEDS ORDERED: NA CHLORIDE 0.9% 500 ML ONE (18:14)
[2022-09-28] MEDS ORDERED: NA CHLORIDE 0.9% 100 ML ONE (18:14)
--- NOTE | 2022-09-28 18:17 | RAD REPORT ---
EXAM DESCRIPTION: CT - Chest For Pe Angio - 09/28/2022 6:06 pm CLINICAL HISTORY: Chest pain. SOB COMPARISON: <Comparisons> TECHNIQUE: CT angiogram of the pulmonary arteries was performed with MIP. All CT scans are performed using dose optimization technique as appropriate and may include automated exposure control or mA/KV adjustment according to patient size. FINDINGS: No evidence of pulmonary thromboembolism. No acute aortic finding demonstrated. Aortic atherosclerosis. Diffuse emphysema. Mild mild linear atelectasis in the left lung base. Mild adenopathy in the mediast inum and hilum. No significant pericardial or pleural fluid. No concerning bony finding. IMPRESSION: No evidence of pulmonary thromboembolism. COPD with mild atelectasis or early infiltrate in the medial left lung base.
--- NOTE | 2022-09-28 18:53 | ER ---
Nurse's Notes [facility] Name: Angelito Ayala Age: 82 yrs Sex: Male : 1940 Arrival Date: 09/28/2022 Time: 15:27 Bed 19 Private MD: Diagnosis: Pneumonia, unspecified organism;Hypoxemia Presentation: 09/28 15:49 Chief complaint: Spouse and/or significant other states: "he has not been feeling well, aa5 he started with a sore throat and a cough and he hasn't gotten out of bed today". 15:49 Acuity: TESSY 2 aa5 15:49 Coronavirus screen: cough unrelated to allergies. Ebola Screen: Patient denies travel aa5 to an Ebola-affected area in the 21 days before illness onset. Initial Sepsis Screen: Does the patient meet any 2 criteria? Temp <36.0*C (96.8*F)) or > 38.3*C (100.9*F). HR > 90 bpm. Yes Does the patient have a suspected source of infection? Yes: Productive cough/pneumonia. Risk Assessment: Do you want to hurt yourself or someone else? Patient reports no desire to harm self or others. Onset of symptoms was September 2022. 15:49 Method Of Arrival: Wheelchair aa5 Historical: - Allergies: 15:52 No Known Allergies; aa5 - PMHx: 15:49 benign neoplasm of colon; cardiomyopathy; Cellulitis; Coronary Arteriosclerosis; aa5 Diabetes - NIDDM; elevated liver function tests; esophageal varices without mention of bleeding; Hyperlipidemia; Hypertension; neck pain; Open Angle Glaucoma; rectal bleeding; sexual dysfunction; TIA; - Immunization history:: Adult Immunizations up to date. - Social history:: Smoking status: Patient denies any tobacco usage or history of. Screenin:00 [facility] ED Fall Risk Assessment (Adult) Score/Fall Risk Level 0 - 2 = Low Risk. Abuse eh3 screen: Denies threats or abuse. Denies injuries from another. Nutritional screening: No deficits noted. Tuberculosis screening: No symptoms or risk factors identified. Assessment: 16:00 General: Appears in no apparent distress. uncomfortable, Behavior is calm, cooperative, eh3 appropriate for age. Pain: Denies pain. Neuro: Level of Consciousness is awake, alert, obeys commands, Oriented to person, place, time, situation. Cardiovascular: Capillary refill < 3 seconds Patient's skin is warm and dry. Respiratory: Reports cough that is productive, Airway is patent Respiratory effort is even, labored, Respiratory pattern is regular, symmetrical, Breath sounds are coarse bilaterally. GI: Abdomen is round non-distended. : No signs and/or symptoms were reported regarding the genitourinary system. EENT: No signs and/or symptoms were reported regarding the EENT system. Derm: Skin is intact, is healthy with good turgor, Skin is dry, Skin temperature is hot. Musculoskeletal: Circulation, motion, and sensation intact. 16:30 Reassessment: Patient appears in no apparent distress at this time. Patient and/or eh3 family updated on plan of care and expected duration. Pain level reassessed. Patient is alert, oriented x 3, equal unlabored respirations, skin warm/dry/pink. 17:30 Reassessment: Patient appears in no apparent distress at this time. Patient and/or eh3 family updated on plan of care and expected duration. Pain level reassessed. Patient is alert, oriented x 3, equal unlabored respirations, skin warm/dry/pink. 18:30 Reassessment: Patient appears in no apparent distress at this time. Patient and/or eh3 family updated on plan of care and expected duration. Pain level reassessed. Patient is alert, oriented x 3, equal unlabored respirations, skin warm/dry/pink. 19:30 Reassessment: Patient appears in no apparent distress at this time. Patient and/or eh3 family updated on plan of care and expected duration. Pain level reassessed. Patient is alert, oriented x 3, equal unlabored respirations, skin warm/dry/pink. 19:45 Reassessment: Ambulated to restroom and back with pulse oximeter; SpO2 dropped to 88% eh3 while ambulating. 20:30 Reassessment: Patient appears in no apparent distress at this time. Patient and/or eh3 family updated on plan of care and expected duration. Pain level reassessed. Patient is alert, oriented x 3, equal unlabored respirations, skin warm/dry/pink. Vital Signs: 15:49 BP 133 / 92; Pulse 52; Resp 18 S; Temp 102.6(O); Pulse Ox 92% on R/A; Weight 81.65 kg aa5 (R); Height 5 ft. 7 in. (R); 16:30 BP 179 / 51; Pulse 89; Resp 16; Pulse Ox 99% on 8 lpm Nebulizer Mask; eh3 17:00 BP 148 / 64; Pulse 86; Resp 18; Pulse Ox 96% on R/A; eh3 17:30 Temp 100.0(O); eh3 17:30 BP 144 / 68; Pulse 83; Resp 15; Temp 100(O); Pulse Ox 99% on 8 lpm Nebulizer Mask; eh3 18:30 BP 141 / 72; Pulse 89; Resp 18; Pulse Ox 95% on 3 lpm NC; eh3 19:30 BP 117 / 56; Pulse 80; Resp 20; Pulse Ox 95% on 2 lpm NC; eh3 20:30 BP 115 / 57; Pulse 73; Resp 20; Pulse Ox 95% on 2 lpm NC; eh3 22:06 BP 119 / 52; Pulse 56; Resp 18; Pulse Ox 93% on 2 lpm NC; ll3 23:29 BP 107 / 48; Pulse 58; Resp 16; Pulse Ox 90% on 2 lpm NC; ll3 05 01:31 BP 125 / 53; Pulse 70; Resp 18; Pulse Ox 96% on 2 lpm NC; ll3 09/28 15:49 Body Mass Index 28.19 (81.65 kg, 170.18 cm) aa5 ED Course: 09/28 15:28 Patient arrived in ED. am2 15:30 Luke Pearson PA is PHCP. cp 15:30 Noble Scott MD is Attending Physician. cp 15:49 Triage completed. aa5 15:49 Arm band placed on. aa5 15:58 Rosio King, LAMAR is Primary Nurse. eh3 16:00 Patient has correct armband on for positive identification. Bed in low position. Call 3 light in reach. Side rails up X2. Adult w/ patient. Client placed on continuous cardiac and pulse oximetry monitoring. NIBP monitoring applied. Door closed. Noise minimized. 16:15 Inserted saline lock: 20 gauge in right hand, using aseptic technique. iw 16:31 Inserted saline lock: 20 gauge in left forearm, using aseptic technique. iw 17:15 Chest Single View XRAY In Process Unspecified. EDMS 17:26 Luke Geiger MD is Attending Physician. cp 18:08 CT Chest For PE Angio In Process Unspecified. EDMS 19:28 Initiated transfer to [place], spoke [place]. wm 19:30 Diet: Patient given a heart healthy meal tray. Tolerated well. eh3 20:25 Faxed clinicals to local [place] \\T\\ [phone]. wm 22:36 [facility] to get an [facility], they said they were really busy and wm haven't had a chance to review it. 09/29 00:24 Pt accepted for transfer by Dr. Wright per Brittany Galarza. wm 01:32 No provider procedures requiring assistance completed. Patient transferred, IV remains ll3 in place. Administered Medications: 09/28 16:32 Drug: Acetaminophen PO 1000 mg Route: PO; iw 17:30 Follow up: Temp 100.0 Oral; Response: Temperature is decreased eh3 16:32 Drug: Albuterol Inhalation 2.5 mg Route: Inhalation; iw 16:45 Drug: Albuterol Inhalation 2.5 mg Route: Inhalation; eh3 16:45 Drug: Tessalon Perle PO 100 mg Route: PO; eh3 17:45 Follow up: Response: No adverse reaction eh3 17:15 Drug: Albuterol Inhalation 2.5 mg Route: Inhalation; eh3 21:00 Follow up: Response: No adverse reaction ll3 17:30 Drug: MethylPrednisoLONE IVP 125 mg Route: IVP; Site: right forearm; eh3 18:30 Follow up: Response: No adverse reaction eh3 18:30 Drug: NS 0.9% IV 500 ml Route: IV; Rate: calculated rate; Site: right hand; eh3 22:35 Follow up: Response: No adverse reaction; IV Status: Completed infusion; IV Intake: ll3 500ml 18:30 Drug: Rocephin IV 1 grams Route: IV; Rate: calculated rate; Site: right hand; eh3 19:00 Follow up: Response: No adverse reaction; IV Status: Completed infusion; IV Intake: [id number] 18:30 Drug: Tussionex Pennkinetic ER PO Suspension 5 ml Route: PO; eh3 19:30 Follow up: Response: No adverse reaction eh3 19:00 Drug: Zithromax IVPB 500 mg Route: IVPB; Infused Over: 1 hrs; Site: right hand; eh3 20:00 Follow up: Response: No adverse reaction; IV Status: Completed infusion; IV Intake: eh3 250ml 22:54 Drug: NS 0.9% IV 1000 ml Route: IV; Rate: 50 ml/hr; Site: right hand; 3 09/29 01:35 Follow up: Response: No adverse reaction; IV Status: Infusion continued upon transfer; 3 IV Intake: 80ml Medication: 01:32 VIS not applicable for this client. ll3 Intake: 09/28 19:00 IV: 50ml; Total: 50ml. eh3 20:00 IV: 250ml; Total: 300ml. 3 22:35 IV: 500ml; Total: 800ml. ll3 09/29 01:35 IV: 80ml; Total: 880ml. 3 Outcome: 09/28 18:53 ER care complete, transfer ordered by MD. howard 09/29 01:32 Transferred by ground EMS to [facility] Transfer form completed. 3 X-rays sent w/ patient. Condition: stable Instructed on the need for transfer, Demonstrated understanding of instructions. 01:57 Patient left the ED. 3 Signatures: Dispatcher [employer] EDMS Audrey Granado RN RN Sandra Gillis RN RN aa5 Luke Pearson PA PA cp Moreno, Amanda amKia Plascencia Lynsea, RN RN ll3 Rosio King RN RN 3 Corrections: (The following items were deleted from the chart) 09/28 15:52 15:49 Acuity: TESSY 3 aa5 aa5
--- NOTE | 2022-09-28 18:53 | EDPHYS ---
Physician Documentation [facility] Name: Angelito Ayala Age: 82 yrs Sex: Male : 1940 Arrival Date: 09/28/2022 Time: 15:27 Bed 19 Private MD: ED Physician Luke Geiger HPI: 09/28 15:57 This 82 yrs old Male presents to ER via Wheelchair with complaints of Cough, cp chills. 15:57 The patient or guardian reports cough, that is constant, with productive sputum. cp 15:57 Onset: The symptoms/episode began/occurred yesterday, and became worse today. cp Associated signs and symptoms: Pertinent positives: chest pain, with cough, sore throat, general weakness, Pertinent negatives: diarrhea, fever, vomiting. Historical: - Allergies: 15:52 No Known Allergies; aa5 - PMHx: 15:49 benign neoplasm of colon; cardiomyopathy; Cellulitis; Coronary Arteriosclerosis; aa5 Diabetes - NIDDM; elevated liver function tests; esophageal varices without mention of bleeding; Hyperlipidemia; Hypertension; neck pain; Open Angle Glaucoma; rectal bleeding; sexual dysfunction; TIA; - Immunization history:: Adult Immunizations up to date. - Social history:: Smoking status: Patient denies any tobacco usage or history of. ROS: 16:00 Constitutional: Positive for fever. cp 16:00 Cardiovascular: Negative for chest pain, edema, palpitations. cp 16:00 Respiratory: Positive for cough, "sounds productive", shortness of breath, at rest. 16:00 Eyes: Negative for injury, pain, redness, and discharge. cp 16:00 ENT: Positive for sore throat, Negative for drainage from ear(s), ear pain, difficulty cp swallowing, difficulty handling secretions. 16:00 Neck: Negative for pain with movement, pain at rest, stiffness. 16:00 Abdomen/GI: Negative for abdominal pain, vomiting, diarrhea, constipation. 16:00 Neuro: Positive for weakness, Negative for altered mental status, headache. 16:00 All other systems are negative. Exam: 16:05 Constitutional: The patient appears in no acute distress, alert, awake, cp non-diaphoretic, non-toxic, well developed, well nourished, obviously ill, uncomfortable. 16:05 Head/Face: Normocephalic, atraumatic. cp 16:05 Eyes: Periorbital structures: appear normal, Conjunctiva: normal, no exudate, no injection, Sclera: no appreciated abnormality, Lids and lashes: appear normal, bilaterally. 16:05 ENT: External ear(s): are unremarkable, Nose: is normal, Mouth: Lips: moist, Oral mucosa: pink and intact, moist, Posterior pharynx: is normal, airway is patent, no erythema, no exudate. 16:05 Neck: ROM/movement: is normal, is supple, without pain, no range of motions limitations, no meningismus. 16:05 Chest/axilla: Inspection: normal, Palpation: is normal, no crepitus, no tenderness. 16:05 Cardiovascular: Rate: bradycardic, Rhythm: regular, Edema: is not appreciated, JVD: is not appreciated. 16:05 Respiratory: the patient does not display signs of respiratory distress, Respirations: cp labored breathing, that is mild, Breath sounds: bronchial sounds, that are moderate, are heard diffusely, stridor, is not appreciated, + upper airway congestion. wheezing: that is mild, is heard diffusely. 16:05 Abdomen/GI: Inspection: abdomen appears normal, Palpation: abdomen is soft and non-tender, in all quadrants. 16:05 Back: pain, is absent, ROM is normal. 16:05 Skin: cellulitis, is not appreciated, no rash present. 16:05 Neuro: Orientation: to person, place \\T\\ time. Mentation: is normal, Motor: moves all fours, general weakness w/o focal deficits. 17:26 ECG was reviewed by the Attending Physician. cp Vital Signs: 15:49 BP 133 / 92; Pulse 52; Resp 18 S; Temp 102.6(O); Pulse Ox 92% on R/A; Weight 81.65 kg aa5 (R); Height 5 ft. 7 in. (R); 16:30 BP 179 / 51; Pulse 89; Resp 16; Pulse Ox 99% on 8 lpm Nebulizer Mask; eh3 17:00 BP 148 / 64; Pulse 86; Resp 18; Pulse Ox 96% on R/A; eh3 17:30 Temp 100.0(O); eh3 17:30 BP 144 / 68; Pulse 83; Resp 15; Temp 100(O); Pulse Ox 99% on 8 lpm Nebulizer Mask; eh3 18:30 BP 141 / 72; Pulse 89; Resp 18; Pulse Ox 95% on 3 lpm NC; eh3 19:30 BP 117 / 56; Pulse 80; Resp 20; Pulse Ox 95% on 2 lpm NC; eh3 20:30 BP 115 / 57; Pulse 73; Resp 20; Pulse Ox 95% on 2 lpm NC; eh3 22:06 BP 119 / 52; Pulse 56; Resp 18; Pulse Ox 93% on 2 lpm NC; ll3 23:29 BP 107 / 48; Pulse 58; Resp 16; Pulse Ox 90% on 2 lpm NC; ll3 05 01:31 BP 125 / 53; Pulse 70; Resp 18; Pulse Ox 96% on 2 lpm NC; ll3 09/28 15:49 Body Mass Index 28.19 (81.65 kg, 170.18 cm) aa5 MDM: 09/28 15:48 Patient medically screened. cp 17:00 Differential Diagnosis: Bronchitis Influenza Otitis Media Viral Syndrome Pneumonia. cp 18:30 Data reviewed: vital signs, nurses notes, lab test result(s), EKG, radiologic studies, cp plain films. 18:30 Consideration of Admission/Observation Escalation of care including admission/observation considered. will transfer to [place] for continued care. I considered the following discharge prescriptions or medication management in the emergency department Medications were administered in the Emergency Department. See MAR. Independent interpretation of the following test(s) in the Emergency Department. Historians other than the Patient: Spouse/Significant Other: provides HPI. Care significantly affected by the following chronic conditions: Diabetes, Hypertension. Counseling: I had a detailed discussion with the patient and/or guardian regarding: the historical points, exam findings, and any diagnostic results supporting the discharge/admit diagnosis, lab results, the need to transfer to another facility. Response to treatment: the patient's symptoms have markedly improved after treatment. 23:00 ED course: consult with DR Wright \\T\\[place], will accept patient as transfer. cp 09/28 15:53 Order name: COVID-19 SARS RT PCR; Complete Time: 17:13 cp 09/28 15:53 Order name: Influenza Screen (a \\T\\ B); Complete Time: 17:13 cp 09/28 15:53 Order name: Urinalysis W/Microscopic; Complete Time: 00:21 cp 05/ 15:54 Order name: Blood Culture Adult (2) cp / 15:54 Order name: CBC with Diff; Complete Time: 16:37 cp /04 16:38 Interpretation: Normal except: RBC 3.72; HGB 9.8; HCT 30.1; MCH 26.4; PLT 133; RDW cp 16.3; MPV 7.2; GILLIAN% 80.7; LYM% 6.6; LYMA 0.5. 05/04 15:54 Order name: CMP; Complete Time: 16:37 cp /04 16:37 Interpretation: Normal except: CL 109; GLUC 157; GFR 67; ALT 15; BILIT 2.1; A/G 1.0. cp / 15:54 Order name: Lactate w/ 2H reflex if indic.; Complete Time: 16:37 cp /04 16:38 Interpretation: LAC 2.0; Reviewed. / 15:54 Order name: Protime (+inr); Complete Time: 16:37 cp /04 16:38 Interpretation: Reviewed. cp 09/28 15:54 Order name: Ptt, Activated; Complete Time: 16:37 cp /04 17:14 Order name: LAB Add On cp 09/28 17:14 Order name: D-Dimer; Complete Time: 17:28 cp /04 17:28 Interpretation: Reviewed. / 15:54 Order name: Chest Single View XRAY; Complete Time: 17:28 cp / 17:28 Interpretation: Report review. / 17:30 Order name: CT Chest For PE Angio; Complete Time: 18:20 cp 05/04 18:20 Interpretation: Report reviewed. / 15:54 Order name: EKG; Complete Time: 15:54 cp / 15:54 Order name: Accucheck; Complete Time: 16:34 cp /04 15:54 Order name: Cardiac monitoring; Complete Time: 17:57 cp / 15:54 Order name: EKG - Nurse/Tech; Complete Time: 17:57 cp / 15:54 Order name: IV Saline Lock - Large Bore; Complete Time: 16:16 cp / 15:54 Order name: Labs collected and sent; Complete Time: 16:17 cp 09/28 15:54 Order name: O2 Per Protocol; Complete Time: 16:34 cp 09/28 15:54 Order name: O2 Sat Monitoring; Complete Time: 16:34 cp 09/28 15:54 Order name: Vital Signs; Complete Time: 16:34 cp 09/28 17:12 Order name: Vital Signs: please update; Complete Time: 18:01 cp 09/28 18:21 Order name: Misc. Order: ambulate with pulse oximeter; Complete Time: 20:03 cp EC:26 Rate is 88 beats/min. Rhythm is regular. MS interval is prolonged at 242 msec. QRS cp interval is prolonged at 152 msec. QT interval is prolonged. T waves are Inverted in leads III, aVF, aVR, V2, V3, V4. Interpreted by me. Reviewed by me. Administered Medications: 16:32 Drug: Acetaminophen PO 1000 mg Route: PO; iw 17:30 Follow up: Temp 100.0 Oral; Response: Temperature is decreased eh3 16:32 Drug: Albuterol Inhalation 2.5 mg Route: Inhalation; iw 16:45 Drug: Albuterol Inhalation 2.5 mg Route: Inhalation; eh3 16:45 Drug: Tessalon Perle PO 100 mg Route: PO; eh3 17:45 Follow up: Response: No adverse reaction eh3 17:15 Drug: Albuterol Inhalation 2.5 mg Route: Inhalation; eh3 21:00 Follow up: Response: No adverse reaction ll3 17:30 Drug: MethylPrednisoLONE IVP 125 mg Route: IVP; Site: right forearm; eh3 18:30 Follow up: Response: No adverse reaction eh3 18:30 Drug: NS 0.9% IV 500 ml Route: IV; Rate: calculated rate; Site: right hand; eh3 22:35 Follow up: Response: No adverse reaction; IV Status: Completed infusion; IV Intake: ll3 500ml 18:30 Drug: Rocephin IV 1 grams Route: IV; Rate: calculated rate; Site: right hand; eh3 19:00 Follow up: Response: No adverse reaction; IV Status: Completed infusion; IV Intake: [id number] 18:30 Drug: Tussionex Pennkinetic ER PO Suspension 5 ml Route: PO; eh3 19:30 Follow up: Response: No adverse reaction eh3 19:00 Drug: Zithromax IVPB 500 mg Route: IVPB; Infused Over: 1 hrs; Site: right hand; [facility] 20:00 Follow up: Response: No adverse reaction; IV Status: Completed infusion; IV Intake: eh3 250ml 22:54 Drug: NS 0.9% IV 1000 ml Route: IV; Rate: 50 ml/hr; Site: right hand; [facility] 09/29 01:35 Follow up: Response: No adverse reaction; IV Status: Infusion continued upon transfer; 3 IV Intake: 80ml Disposition Summary: 09/28/22 18:53 Transfer Ordered Transfer Location: [facility] cp Reason: Higher level of care cp Condition: Stable cp Problem: new cp Symptoms: have improved cp Accepting Physician: DR Wright(09/29/22 01:57) 3 Diagnosis - Pneumonia, unspecified organism cp - Hypoxemia cp Forms: - Medication Reconciliation Form cp - SBAR form cp Signatures: Dispatcher [employer] Audrey Lanier RN RN iw Calderon, Audri RN RN aa5 Luke Pearson PA PA cp Manuel Fairchild RN RN 3 Rosio King RN RN 3 Corrections: (The following items were deleted from the chart) 09/28 16:02 15:53 Chest Pa And Lat (2 Views)+RAD.[email or web address].[email or web address] ordered. EDMS EDMS 09/29 00:46 04 18:53 Doctor cp cp 09/29 01:57 00:46 DR Wright cp 3
[2022-09-28 20:06] LABS: Urine Bacteria None Seen /HPF (<20); Urine Bilirubin NEGATIVE (Negative); Urine Blood Negative (Negative); Urine Clarity Clear (Clear); Urine Color Light-Yellow (Yellow); Urine Glucose NEGATIVE (Negative); Urine Protein 1+ (Negative); Urine RBC <5 /HPF (None Seen); Urine Urobilinogen Normal (Normal); Urine pH 6.5 (5.0-7.0)
[2022-09-28] MEDS ORDERED: NA CHLORIDE 0.9% 1,000 ML ONE (22:58)
[2022-09-29 02:36] VITALS: TEMP 100
[2022-09-29 02:47] VITALS: BP 125/53; O2SAT 96
--- NOTE | 2022-09-29 05:49 | EKG ---
Test Date: 2022-09-28 Test Time: 17:20:00 Trolley Car Operator: SAVANNA MEASUREMENT RESULTS: Intervals: Rate: 88 MA: 242 QRSD: 150 QT: 426 QTc: 515 [place]: P: 34 MA: 242 QRS: 94 T: -8 INTERPRETIVE STATEMENTS: Sinus rhythm with 1st degree AV block Right bundle branch block T wave abnormality, consider inferior ischemia Abnormal ECG Compared to ECG 03/17/2021 12:26:02 First degree AV block now present Sinus bradycardia no longer present Ventricular premature complex(es) no longer present T-wave abnormality still present Possible ischemia still present Electronically Signed On 09-29-22 05:48:37 CDT by Derek Avilez
== END 2022-09-29 01:57 ==
LOC: ER 15:27
DX: J18.9 Pneumonia, unspecified organism (principal); R09.02 Hypoxemia; I10 Essential (primary) hypertension; E11.9 Type 2 diabetes mellitus without complications; Z20.822 Contact with and (suspected) exposure to COVID-19
CPT/HCPCS: 96365; 96367; 96361; 93005; 87040 ×2; 85025; 81001; 36415; 85610; 85379; 83605; 85730; 80053; 87804 ×2; 71275; 71045; 96375; 99285; U0003; Q9967; J7613 ×2; J2930; J7050; J7040; J7030; J0696

== ENCOUNTER 2022-10-24 14:46 | Emergency (ER) | payer OTHER ==
[2022-10-24 16:03] LABS: Absolute Lymphocytes (CBC) 1.6 K/uL (0.7-4.9); Hematocrit 33.1 % (39.6-49.0); Lymphocytes % 28.2 % (15.3-44.8); MCV 80.8 fL (80-100); RBC Red Blood Cell Count 4.09 M/uL (4.33-5.43)
[2022-10-24 16:06] LABS: Protime INR 1.12
[2022-10-24 16:12] LABS: Specific Gravity 1.019 (1.005-1.030); Urine Bacteria <20 /HPF (<20); Urine Bilirubin NEGATIVE (Negative); Urine Blood Negative (Negative); Urine Clarity Clear (Clear); Urine Color Yellow (Yellow); Urine Glucose NEGATIVE (Negative); Urine Mucus 1+ /HPF (None Seen); Urine Protein 1+ (Negative); Urine RBC <5 /HPF (None Seen); Urine Urobilinogen Normal (Normal); Urine pH 5.5 (5.0-7.0)
[2022-10-24 16:26] LABS: Potassium 4.4 mEq/L (3.5-5.1); Troponin High Sensitivity 9.5 pg/mL (<58.9)
--- NOTE | 2022-10-24 16:32 | RAD REPORT ---
EXAM DESCRIPTION: Kia Soto And Larissa (2 Views)10/24/2022 4:26 pm CLINICAL HISTORY: Cough COMPARISON: September 28, 2022 FINDINGS: The lungs appear clear of acute infiltrate. The heart is normal size IMPRESSION: No acute abnormalities displayed
[2022-10-24] MEDS ORDERED: BENZONATATE 100 MG CAP PO ONE (16:45)
[2022-10-24] MEDS ORDERED: NA CHLORIDE 0.9% 500 ML ONE (16:45)
--- NOTE | 2022-10-24 17:13 | ER ---
Nurse's Notes [facility] Name: Angelito Ayala Age: 82 yrs Sex: Male : 1940 Arrival Date: 10/24/2022 Time: 14:46 Bed 8 Private MD: Diagnosis: Cough Presentation: 10/24 15:22 Chief complaint: Patient states: my BP is low 94/48, [facility], a month ago he had iw pneumonia and he has been tired since then and has a bad cough, went for a follow up today and his BP was low so they sent him here. Coronavirus screen: Client presents with at least one sign or symptom that may indicate coronavirus-19. Ebola Screen: Patient negative for fever greater than or equal to 101.5 degrees Fahrenheit, and additional compatible Ebola Virus Disease symptoms Patient denies exposure to infectious person. Patient denies travel to an Ebola-affected area in the 21 days before illness onset. No symptoms or risks identified at this time. Initial Sepsis Screen: Does the patient meet any 2 criteria? No. Patient's initial sepsis screen is negative. Does the patient have a suspected source of infection? No. Patient's initial sepsis screen is negative. Risk Assessment: Do you want to hurt yourself or someone else? Patient reports no desire to harm self or others. Onset of symptoms was August 2022. 15:22 Method Of Arrival: Wheelchair iw 15:22 Acuity: TESSY 3 iw Historical: - Allergies: 15:23 No Known Allergies; iw - Home Meds: 15:23 aspirin 81 mg Oral chew 1 tab once daily [Active]; clopidogrel 75 mg Oral tab 1 tab iw once daily [Active]; ferrous gluconate 324 mg (36 mg iron) Oral tab twice a day [Active]; isosorbide mononitrate 30 mg Oral Tb24 3 tabs once daily [Active]; lisinopril 2.5 mg Oral tab 1 tab once daily [Active]; metformin 500 mg Oral tab 1 tab 2 times per day [Active]; metoprolol tartrate 25 mg Oral tab 1 tab 2 times per day [Active]; rosuvastatin 40 mg Oral tab 1 tab once daily [Active]; tamsulosin 0.4 mg Oral cp24 1 cap once daily [Active]; - PMHx: 15:23 benign neoplasm of colon; cardiomyopathy; Cellulitis; Coronary Arteriosclerosis; iw Diabetes - NIDDM; elevated liver function tests; esophageal varices without mention of bleeding; Hyperlipidemia; Hypertension; neck pain; Open Angle Glaucoma; rectal bleeding; sexual dysfunction; TIA; - Immunization history:: Adult Immunizations unknown. - Social history:: Smoking status: unknown. Screenin:30 [facility] ED Fall Risk Assessment (Adult) History of falling in the last 3 months, jl7 including since admission No falls in past 3 months (0 pts) Confusion or Disorientation No (0 pts) Intoxicated or Sedated No (0 pts) Impaired Gait No (0 pts) Mobility Assist Device Used No (0 pt) Altered Elimination No (0 pt) Score/Fall Risk Level 0 - 2 = Low Risk Oriented to surroundings, Maintained a safe environment. Abuse screen: Denies threats or abuse. Denies injuries from another. Nutritional screening: No deficits noted. Tuberculosis screening: No symptoms or risk factors identified. Assessment: 16:30 General: Appears in no apparent distress. uncomfortable, Behavior is calm, cooperative, jl7 appropriate for age. Pain: Denies pain. Neuro: Level of Consciousness is awake, alert, obeys commands, Oriented to person, place, time, situation. Cardiovascular: Patient's skin is warm and dry. Rhythm is sinus bradycardia. Respiratory: Reports cough that is dry, hacking, Airway is patent Respiratory effort is even, unlabored, Respiratory pattern is regular, symmetrical. Derm: Skin is pink, warm \T\ dry. Vital Signs: 15:22 BP 126 / 57; Pulse 44; Resp 16; Temp 97.9; Pulse Ox 97% on R/A; iw 16:52 BP 135 / 72; Pulse 56; Resp 15 S; Pulse Ox 100% on R/A; Pain 0/10; jl7 17:30 BP 140 / 64; Pulse 63; Resp 16; Pulse Ox 100% ; Pain 0/10; jl7 16:52 Pain Scale: Adult jl7 17:30 Pain Scale: Adult jl7 ED Course: 14:47 Patient arrived in ED. am2 15:04 Luke Pearson PA is PHCP. cp 15:04 Juan David Daniels MD is Attending Physician. cp 15:23 Triage completed. iw 15:25 Arm band placed on. iw 16:25 Winchester, Jahala, RN is Primary Nurse. jl7 16:27 XRAY Chest Pa And Lat (2 Views) In Process Unspecified. EDMS 16:30 Patient has correct armband on for positive identification. Placed in gown. Bed in low jl7 position. Call light in reach. Side rails up X 1. Client placed on continuous cardiac and pulse oximetry monitoring. NIBP monitoring applied. Warm blanket given. 16:30 Initial lab(s) drawn, by me, sent to lab. EKG done, by ED staff, reviewed by Luke CUMMINGS. Inserted saline lock: 20 gauge in right antecubital area, using aseptic technique. Blood collected. 17:30 No provider procedures requiring assistance completed. IV discontinued, intact, jl7 bleeding controlled, No redness/swelling at site. Pressure dressing applied. Administered Medications: 16:55 Drug: NS 0.9% IV 500 ml Route: IV; Rate: 250 ml/hr; Site: right antecubital; jl7 17:53 Follow up: Response: No adverse reaction; IV Status: Order to discontinue infusion; IV jl7 Intake: 230ml 16:55 Drug: Tessalon Perle PO 200 mg Route: PO; jl7 17:54 Follow up: Response: No adverse reaction jl7 Medication: 16:30 VIS not applicable for this client. jl7 Intake: 17:53 IV: 230ml; Total: 230ml. jl7 Outcome: 17:13 Discharge ordered by . cp 17:45 Discharged to home ambulatory. jl7 17:45 Condition: stable 17:45 Discharge instructions given to patient, Instructed on discharge instructions, follow up and referral plans. medication usage, Demonstrated understanding of instructions, follow-up care, medications, Prescriptions given X 3. 17:55 Patient left the ED. jl7 Signatures: Dispatcher [employer] EDMS Audrey Granado RN Luke Gross PA PA cp Leal, Jahala, RN RN adan7 Mackenzie Bella am2
--- NOTE | 2022-10-24 17:13 | EDPHYS ---
Physician Documentation [facility] Name: Angelito Ayala Age: 82 yrs Sex: Male : 1940 Arrival Date: 10/24/2022 Time: 14:46 Bed 8 Private MD: ED Physician Juan David Daniels HPI: 10/24 15:30 This 82 yrs old Male presents to ER via Wheelchair with complaints of Blood cp Pressure Problem - low. 15:30 low blood pressure. patient reports at appt at local [place] clinic today he observed to cp have low blood pressure and low HR. patient reports blood pressure of 94/48. patient c/o of continued cough since visit and transfer to [facility] for pneumonia. while in hospital patient was diagnosed with viral pneumonia . Historical: - Allergies: 15:23 No Known Allergies; iw - Home Meds: 15:23 aspirin 81 mg Oral chew 1 tab once daily [Active]; clopidogrel 75 mg Oral tab 1 tab iw once daily [Active]; ferrous gluconate 324 mg (36 mg iron) Oral tab twice a day [Active]; isosorbide mononitrate 30 mg Oral Tb24 3 tabs once daily [Active]; lisinopril 2.5 mg Oral tab 1 tab once daily [Active]; metformin 500 mg Oral tab 1 tab 2 times per day [Active]; metoprolol tartrate 25 mg Oral tab 1 tab 2 times per day [Active]; rosuvastatin 40 mg Oral tab 1 tab once daily [Active]; tamsulosin 0.4 mg Oral cp24 1 cap once daily [Active]; - PMHx: 15:23 benign neoplasm of colon; cardiomyopathy; Cellulitis; Coronary Arteriosclerosis; iw Diabetes - NIDDM; elevated liver function tests; esophageal varices without mention of bleeding; Hyperlipidemia; Hypertension; neck pain; Open Angle Glaucoma; rectal bleeding; sexual dysfunction; TIA; - Immunization history:: Adult Immunizations unknown. - Social history:: Smoking status: unknown. ROS: 15:33 Respiratory: Positive for cough, "sounds productive", Negative for shortness of breath, cp wheezing. 15:33 Eyes: Negative for injury, pain, redness, and discharge. cp 15:33 Constitutional: Negative for body aches, chills, fever, poor PO intake. 15:33 ENT: Negative for drainage from ear(s), ear pain, difficulty swallowing, difficulty handling secretions. 15:33 Cardiovascular: Negative for chest pain, edema, palpitations. 15:33 Abdomen/GI: Negative for abdominal pain, vomiting, diarrhea, constipation. 15:33 Back: Negative for pain at rest, pain with movement. 15:33 Neuro: Negative for altered mental status, dizziness, headache, weakness. 15:33 All other systems are negative. Exam: 15:40 Constitutional: The patient appears in no acute distress, alert, awake, cp non-diaphoretic, non-toxic, well developed, well nourished. 15:40 Head/Face: Normocephalic, atraumatic. cp 15:40 Eyes: Periorbital structures: appear normal, Conjunctiva: normal, no exudate, no injection, Sclera: no appreciated abnormality, Lids and lashes: appear normal, bilaterally. 15:40 ENT: External ear(s): are unremarkable, Nose: is normal, Mouth: is normal, Posterior pharynx: is normal, airway is patent, no erythema, no exudate. 15:40 Chest/axilla: Inspection: normal. 15:40 Cardiovascular: Rate: bradycardic, Rhythm: regular, Edema: is not appreciated, JVD: is not appreciated. 15:40 Respiratory: the patient does not display signs of respiratory distress, Respirations: normal, no use of accessory muscles, no retractions, labored breathing, is not present, Breath sounds: are clear throughout, no decreased breath sounds, no stridor, no wheezing. 15:40 Abdomen/GI: Inspection: abdomen appears normal, Palpation: abdomen is soft and non-tender, in all quadrants. 15:40 Back: pain, is absent, ROM is normal. 15:40 Neuro: Orientation: to person, place \\T\\ time. Mentation: is normal, Motor: moves all fours, strength is normal, Gait: is steady, at a normal pace, without difficulty. 15:53 ECG was reviewed by the Attending Physician. cp Vital Signs: 15:22 BP 126 / 57; Pulse 44; Resp 16; Temp 97.9; Pulse Ox 97% on R/A; iw 16:52 BP 135 / 72; Pulse 56; Resp 15 S; Pulse Ox 100% on R/A; Pain 0/10; jl7 17:30 BP 140 / 64; Pulse 63; Resp 16; Pulse Ox 100% ; Pain 0/10; jl7 16:52 Pain Scale: Adult jl7 17:30 Pain Scale: Adult jl7 MDM: 15:28 Patient medically screened. cp 17:12 Data reviewed: vital signs, nurses notes, lab test result(s), EKG, radiologic studies, cp plain films. 17:12 Differential Diagnosis sepsis, flu, pneumonia, pulmonary embolism, cardiac arrythmia, cp sepsis. Consideration of Admission/Observation Escalation of care including admission/observation considered. I considered the following discharge prescriptions or medication management in the emergency department Medications were administered in the Emergency Department. See MAR. Care significantly affected by the following chronic conditions: Hypertension. Counseling: I had a detailed discussion with the patient and/or guardian regarding: the historical points, exam findings, and any diagnostic results supporting the discharge/admit diagnosis, lab results, radiology results, the need for outpatient follow up, an online marketing strategist, to return to the emergency department if symptoms worsen or persist or if there are any questions or concerns that arise at home. Response to treatment: the patient's symptoms have markedly improved after treatment, and as a result, I will discharge patient. 10/24 15:27 Order name: Basic Metabolic Panel; Complete Time: 16: 10/24 16:28 Interpretation: Normal except: CL 111; GFR 76. 10/24 15:27 Order name: CBC with Diff 10/24 16:28 Interpretation: Normal except: RBC 4.09; HGB 10.7; HCT 33.1; MCH 26.1; PLT 146; RDW cp 17.4; MPV 7.0; GILLIAN% 41.0; EOSINOPHIL % 22.0; EOSA 1.2. 10/24 15:27 Order name: Magnesium; Complete Time: 16:28 cp 10/24 15:27 Order name: NT PRO-BNP; Complete Time: 16:28 10/24 15:27 Order name: PT-INR; Complete Time: 16: 10/24 15:27 Order name: Troponin HS; Complete Time: 16:28 10/24 15:27 Order name: Urinalysis W/Microscopic; Complete Time: 16:28 10/24 17:33 Order name: CBC Smear Scan EDDC 10/24 15:40 Order name: XRAY Chest Pa And Lat (2 Views) 10/24 15:27 Order name: EKG; Complete Time: 15:28 cp 10/24 15:27 Order name: Cardiac monitoring; Complete Time: 16:59 cp 10/24 15:27 Order name: EKG - Nurse/Tech; Complete Time: 15:54 cp 10/24 15:27 Order name: IV Saline Lock; Complete Time: 15:54 cp 10/24 15:27 Order name: Labs collected and sent; Complete Time: 15:54 10/24 15:27 Order name: O2 Per Protocol; Complete Time: 15:54 10/24 15:27 Order name: O2 Sat Monitoring; Complete Time: 15:54 10/24 16:47 Order name: Vital Signs: please update; Complete Time: 16:59 cp EC:53 Rate is 48 beats/min. Rhythm is regular. LA interval is prolonged at 216 msec. QRS cp interval is prolonged at 130 msec. QT interval is prolonged at 512 msec. T waves are Inverted in lead aVR. Interpreted by me. Reviewed by me. Administered Medications: 16:55 Drug: NS 0.9% IV 500 ml Route: IV; Rate: 250 ml/hr; Site: right antecubital; jl7 17:53 Follow up: Response: No adverse reaction; IV Status: Order to discontinue infusion; IV jl7 Intake: 230ml 16:55 Drug: Tessalon Perle PO 200 mg Route: PO; jl7 17:54 Follow up: Response: No adverse reaction jl7 Disposition Summary: 10/24/22 17:13 Discharge Ordered Location: Home cp Problem: new cp Symptoms: have improved cp Condition: Stable cp Diagnosis - Cough cp Followup: cp - With: Private Physician - When: 2 - 3 days - Reason: Recheck today's complaints Discharge Instructions: - Discharge Summary Sheet cp - Cool Mist Vaporizer cp - Cough, Adult cp Forms: - Medication Reconciliation Form cp - Thank You Letter cp - Antibiotic Education cp - Prescription Opioid Use cp Prescriptions: - albuterol sulfate 90 mcg/actuation Inhalation HFA Aerosol Inhaler - inhale 1 puff by INHALATION route every 4 to 6 hours as needed for cp bronchospasm; administer via ventilator; 1 unit; Refills: 0, Product Selection Permitted - Tessalon Perles 100 mg Oral Capsule - take 2 capsule by ORAL route every 8 hours As needed; 30 capsule; Refills: 0, cp Product Selection Permitted - Medrol (Perez) 4 mg Oral Tablets, Dose Pack - take 1 tablet by ORAL route as directed - follow package instructions; 1 cp packet; Refills: 0, Product Selection Permitted Signatures: Dispatcher [employer] Audrey Lanier, RN RN Luke Giron PA PA Miguel Glass RN RN jl7 Corrections: (The following items were deleted from the chart) 10/25 16:27 10/24 15:30 low blood pressure. patient reports at appt at local [facility] today he cp observed to have low blood pressure and low HR. pat. cp 10/25 16:28 10/24 15:30 low blood pressure. patient reports at appt at [facility] today he cp observed to have low blood pressure and low HR. patient reports blood pressure of 96/48. cp
[2022-10-24 17:33] LABS: Blood Morphology Comment NOT SEEN (NOT SEEN); Platelet Estimate ADEQ; White Blood Cell Scan OK (OK)
[2022-10-24 18:08] VITALS: TEMP 97.9
[2022-10-24 18:10] VITALS: O2SAT 100
[2022-10-24 18:11] VITALS: BP 140/64
--- NOTE | 2022-10-25 07:07 | EKG ---
Test Date: 2022-10-24 Test Time: 15:47:05 Plant Inspector: JOHN MEASUREMENT RESULTS: Intervals: Rate: 48 MA: 216 QRSD: 130 QT: 512 QTc: 457 Leland: P: 62 MA: 216 QRS: 96 T: 35 INTERPRETIVE STATEMENTS: Marked sinus bradycardia with 1st degree AV block Right bundle branch block Abnormal ECG Compared to ECG 09/28/2022 17:20:00 Sinus rhythm no longer present T-wave abnormality no longer present Possible ischemia no longer present Electronically Signed On 10-25-22 07:06:31 CDT by Derek Avilez
== END 2022-10-24 17:55 | disposition home or self-care (01) ==
LOC: ER 14:46
DX: R05.9 Cough, unspecified (principal); E11.9 Type 2 diabetes mellitus without complications; I10 Essential (primary) hypertension; Z79.82 Long term (current) use of aspirin
CPT/HCPCS: 93005; 85025; 81001; 80048; 36415; 83735; 85610; 84484; 83880; 71046; 96360; 99284; J7040

== ENCOUNTER → 2023-05-26 | Emergency (ER) | payer OTHER ==
[~2023-05-26] MED LIST: ACETAMINOPHEN 500 MG TAB ONE; AZITHROMYCIN 250 MG TAB ONE; CEFTRIAXONE 1000 MG/VIAL ONE; IPRATROPIUM BROM 0.5MG/2.5ML ONE; LEVALBUTEROL 1.25 MG/3 ML NEB ONE; METHYLPREDNISOLONE 125 MG INJ ONE; NA CHLORIDE 0.9% 500 ML ONE; predniSONE 20 MG TAB ONE
[2023-05-26 07:23] LABS: Absolute Lymphocytes (CBC) 0.6 K/uL (0.7-4.9); Hematocrit 29.8 % (39.6-49.0); Lymphocytes % 9.1 % (15.3-44.8); MCV 86.6 fL (80-100); MPV 6.9 fL (7.6-11.3); Platelets 109 thou/uL (152-406); RBC Red Blood Cell Count 3.44 M/uL (4.33-5.43)
[2023-05-26 07:43] LABS: Troponin High Sensitivity 23.4 pg/mL (<58.9)
[2023-05-26 07:44] LABS: Albumin 3.5 g/dL (3.4-5.0); Bilirubin Total 2.6 mg/dL (0.2-1.0); Potassium 3.9 mEq/L (3.5-5.1); Protein, Total 7.1 g/dL (6.4-8.2)
--- NOTE | 2023-05-26 07:52 | RAD REPORT ---
EXAM DESCRIPTION: Kia Pa And Lat (2 Views)05/26/2023 6:00 am CLINICAL HISTORY: Cough COMPARISON: September 2022 FINDINGS: Mild chronic appearing interstitial lung opacities bilaterally. Heart is mildly enlarged IMPRESSION: No acute abnormalities displayed
[2023-05-26 08:37] LABS: SARS-COV-2 RT PCR POSITIVE (NEGATIVE)
--- NOTE | 2023-05-26 09:18 | ER ---
Nurse's Notes [facility] Name: Angelito Ayala Age: 82 yrs Sex: Male : 1940 Arrival Date: 05/26/2023 Time: 04:52 Bed 7 Private MD: Diagnosis: SARS-associated coronavirus as the cause of diseases classified elsewhere;Dyspnea, unspecified;Hypoxemia Presentation: 05/26 05:11 Chief complaint: Patient states: cough, congestion, subjective fever starting km8 yesterday; seen at [facility] and given ABX, told to come to the ER if he feels worse. Coronavirus screen: Client denies travel out of the [place] in the last 14 days. Ebola Screen: No symptoms or risks identified at this time. Initial Sepsis Screen: Does the patient meet any 2 criteria? RR > 20 per min. No. Patient's initial sepsis screen is negative. Does the patient have a suspected source of infection? No. Patient's initial sepsis screen is negative. Risk Assessment: Do you want to hurt yourself or someone else? Patient reports no desire to harm self or others. Onset of symptoms was May 25, 2023. 05:11 Method Of Arrival: Ambulatory km8 05:11 Acuity: TESSY 3 km8 Triage Assessment: 05:14 General: Appears in no apparent distress. uncomfortable, Behavior is cooperative, km8 appropriate for age, restless. Pain: Complains of pain in left shoulder, back of neck, back Pain currently is 3 out of 10 on a pain scale. EENT: Reports nasal congestion nasal discharge. Neuro: Level of Consciousness is awake, alert, obeys commands, Oriented to person, place, time, situation. Cardiovascular: Denies chest pain, Capillary refill < 3 seconds Patient's skin is warm and dry. Rhythm is irregular. Respiratory: Reports shortness of breath cough that is Airway is patent Respiratory effort is even, labored, Respiratory pattern is regular, symmetrical. GI: No signs and/or symptoms were reported involving the gastrointestinal system. : No signs and/or symptoms were reported regarding the genitourinary system. Derm: No signs and/or symptoms reported regarding the dermatologic system. Skin is intact, Skin is dry, Skin is pink, warm \T\ dry. normal, Skin temperature is warm. Musculoskeletal: No signs and/or symptoms reported regarding the musculoskeletal system. Range of motion: intact in all extremities. Historical: - Allergies: 05:14 No Known Allergies; km8 - Home Meds: 13:13 aspirin 81 mg Oral chew 1 tab once daily [Active]; clopidogrel 75 mg Oral tab 1 tab iw once daily [Active]; isosorbide mononitrate 30 mg Oral Tb24 1 tab once daily [Active]; tamsulosin 0.4 mg Oral cp24 1 cap daily [Active]; pravastatin 20 mg oral tablet every day at bedtime [Active]; carvedilol 6.25 mg oral tablet 2 times per day [Active]; amlodipine 5 mg tablet daily [Active]; cyanocobalamin (vitamin B-12) 250 mcg oral tablet daily [Active]; pantoprazole 20 mg oral tablet, delayed release (enteric coated) daily [Active]; - PMHx: 05:14 benign neoplasm of colon; cardiomyopathy; Cellulitis; Coronary Arteriosclerosis; [facility] Diabetes - NIDDM; elevated liver function tests; esophageal varices without mention of bleeding; Hyperlipidemia; Hypertension; neck pain; Open Angle Glaucoma; rectal bleeding; sexual dysfunction; TIA; - Immunization history:: Client reports receiving the 2nd dose of the Covid vaccine, Flu vaccine status is unknown. - Social history:: Smoking status: Patient denies any tobacco usage or history of. Patient/guardian denies using alcohol, street drugs. Screenin:56 [facility] ED Fall Risk Assessment (Adult) Score/Fall Risk Level 0 - 2 = Low Risk. Abuse iw screen: Denies threats or abuse. Denies injuries from another. Nutritional screening: No deficits noted. 13:46 Tuberculosis screening: No symptoms or risk factors identified. iw Assessment: 07:10 General: Appears uncomfortable, ill, Behavior is cooperative. General: Reports fever iw for 2-3 days, feeling ill for fatigue for. Pain: Complains of pain in anterior aspect of left shoulder and posterior aspect of left shoulder. Neuro: Level of Consciousness is awake, alert, obeys commands, Oriented to person, place, time, situation, Moves all extremities. Full function. Cardiovascular: Patient's skin is warm and dry. Respiratory: Reports shortness of breath on exertion cough that is Airway is patent Respiratory effort is even, labored, Respiratory pattern is regular, GI: Abdomen is non-distended. Derm: Skin is intact, is healthy with good turgor. Musculoskeletal: Range of motion: intact in all extremities. 08:30 Reassessment: Patient appears in no apparent distress at this time. Patient and/or iw family updated on plan of care and expected duration. Pain level reassessed. Patient is alert, oriented x 3, equal unlabored respirations, skin warm/dry/pink. 09:19 Reassessment: Patient appears in no apparent distress at this time. pt SpO2 down to 93 iw % on exertion. 10:44 Reassessment: Patient appears in no apparent distress at this time. pt sleeping , VSS, iw remains on 2 L NC. 13:46 Reassessment: Patient appears in no apparent distress at this time. Patient and/or iw family updated on plan of care and expected duration. Pain level reassessed. Patient is alert, oriented x 3, equal unlabored respirations, skin warm/dry/pink. Vital Signs: 05:11 BP 145 / 76; Pulse 85; Resp 20; Temp 98.9(O); Pulse Ox 99% on R/A; Weight 81.65 kg (R); km8 Height 5 ft. 7 in. (R); Pain 3/10; 07:20 BP 174 / 75; Pulse 104; Resp 20; Temp 102.9(O); Pulse Ox 95% on R/A; iw 07:56 BP 162 / 89; iw 08:30 Temp 100.7(O); iw 09:15 BP 154 / 74; Pulse 97; Resp 20 S; Temp 99.7(O); Pulse Ox 93% ; iw 09:42 Pulse Ox 88% on R/A; ld1 09:46 Pulse Ox 92% on 2 lpm NC; ld1 13:44 BP 134 / 53; Pulse 81; Resp 16; Pulse Ox 94% on R/A; iw 05:11 Body Mass Index 28.19 (81.65 kg, 170.18 cm) km8 05:11 Pain Scale: Adult km8 ED Course: 04:54 Patient arrived in ED. ag3 04:57 Luke Geiger MD is Attending Physician. osmin 05:14 Triage completed. km8 05:14 Arm band placed on right wrist. km8 06:02 Chest Pa And Lat (2 Views) XRAY In Process Unspecified. EDMS 07:10 Initial lab(s) drawn, by ne, sent to lab. Inserted saline lock: 20 gauge in right iw antecubital area, using aseptic technique. 07:32 Audrey Granado, RN is Primary Nurse. iw 07:49 Attending Physician role handed off by Luke Geiger MD rn 07:49 Noble Scott MD is Attending Physician. rn 07:57 Patient has correct armband on for positive identification. Provided Education on: HIV iw Consent. Client placed on continuous cardiac and pulse oximetry monitoring. NIBP monitoring applied. 09:17 Scooby Palafox MD is Hospitalizing Provider. rn 09:26 No provider procedures requiring assistance completed. iw 10:12 initiated a transfer with the [facility] from the [facility] transfer center at the request of the eb patient. 12:[address] Santoyo the physician neonatal intensive care unit nurse for the [facility] with Dr. Scott for patient transfer eb consultation. 12:08 administrative approval given by [facility] Jane/ patient has been accepted to the [facility] eb ED/ Dr. Antonio Santoyo has accepted the patient in transfer report to be called to [phone] ext [phone]. Administered Medications: 07:40 Drug: Acetaminophen PO 1000 mg PO once Route: PO; iw 07:41 Drug: AZITHromycin PO 500 mg PO once Route: PO; iw 07:41 Drug: Levalbuterol Inhalation 3.75 mg Inhalation once Route: Inhalation; iw 07:41 Drug: Ipratropium Inhalation Aerosol 0.5 mg Inhalation once Route: Inhalation; iw 07:41 Drug: MethylPrednisoLONE IVP 125 mg IVP once Route: IVP; Site: right antecubital; iw 07:41 Drug: predniSONE PO 40 mg PO once Route: PO; iw 07:41 Drug: NS 0.9% IV 500 ml IV at bolus once Route: IV; Rate: bolus; Site: right iw antecubital; 07:41 Drug: Rocephin IV 1 grams IV at per protocol once; Given slow IV push per pharmacy iw instructions Route: IV; Rate: per protocol; Site: right antecubital; Medication: 08:30 VIS not applicable for this client. iw Outcome: 09:18 Decision to Hospitalize by Provider. rn 12:09 ER care complete, transfer ordered by . rn 14:09 Patient left the ED. iw Signatures: Dispatcher [employer] EDMS Luke Geiger MD MD cha Williams, Irene, RN RN iw Noble Scott MD MD rn Samia, Yessica Merino ag3 Laura Wiggins, LAMAR RN ld1 Cori Suazo RN RN km8
--- NOTE | 2023-05-26 09:19 | EDPHYS ---
Physician Documentation [facility] Name: Angelito Ayala Age: 82 yrs Sex: Male : 1940 Arrival Date: 05/26/2023 Time: 04:52 Bed 7 Private MD: ED Physician Noble Scott HPI: 05/26 05:42 This 82 yrs old Male presents to ER via Ambulatory with complaints of Cough, osmin Congestion. 05:42 The patient or guardian reports airway noise, cough, difficulty breathing, flu osmin symptoms, arthralgias, low-grade fever, myalgias. Onset: The symptoms/episode began/occurred 2 day(s) ago. Severity of symptoms: At their worst the symptoms were mild, moderate, in the emergency department the symptoms have improved, mildly. Modifying factors: The symptoms are alleviated by cool environment, the symptoms are aggravated by exertion. The patient has experienced similar episodes in the past, a few times. Historical: - Allergies: 05:14 No Known Allergies; km8 - Home Meds: 13:13 aspirin 81 mg Oral chew 1 tab once daily [Active]; clopidogrel 75 mg Oral tab 1 tab iw once daily [Active]; isosorbide mononitrate 30 mg Oral Tb24 1 tab once daily [Active]; tamsulosin 0.4 mg Oral cp24 1 cap daily [Active]; pravastatin 20 mg oral tablet every day at bedtime [Active]; carvedilol 6.25 mg oral tablet 2 times per day [Active]; amlodipine 5 mg tablet daily [Active]; cyanocobalamin (vitamin B-12) 250 mcg oral tablet daily [Active]; pantoprazole 20 mg oral tablet, delayed release (enteric coated) daily [Active]; - PMHx: 05:14 benign neoplasm of colon; cardiomyopathy; Cellulitis; Coronary Arteriosclerosis; km8 Diabetes - NIDDM; elevated liver function tests; esophageal varices without mention of bleeding; Hyperlipidemia; Hypertension; neck pain; Open Angle Glaucoma; rectal bleeding; sexual dysfunction; TIA; - Immunization history:: Client reports receiving the 2nd dose of the Covid vaccine, Flu vaccine status is unknown. - Social history:: Smoking status: Patient denies any tobacco usage or history of. Patient/guardian denies using alcohol, street drugs. ROS: 05:43 Constitutional: Negative for fever, chills, and weight loss, Eyes: Negative for injury, osmin pain, redness, and discharge, ENT: Negative for injury, pain, and discharge, Neck: Negative for injury, pain, and swelling, Cardiovascular: Negative for chest pain, palpitations, and edema, Abdomen/GI: Negative for abdominal pain, nausea, vomiting, diarrhea, and constipation, Back: Negative for injury and pain, : Negative for injury, bleeding, discharge, and swelling, MS/Extremity: Negative for injury and deformity, Skin: Negative for injury, rash, and discoloration, Neuro: Negative for headache, weakness, numbness, tingling, and seizure, Psych: Negative for depression, anxiety, suicide ideation, homicidal ideation, and hallucinations, Allergy/Immunology: Negative for hives, rash, and allergies, Endocrine: Negative for neck swelling, polydipsia, polyuria, polyphagia, and marked weight changes, Hematologic/Lymphatic: Negative for swollen nodes, abnormal bleeding, and unusual bruising, 05:43 Respiratory: Positive for cough, shortness of breath, wheezing, inspiratory, expiratory, Exam: 05:43 Constitutional: This is a well developed, well nourished patient who is awake, alert, osmin and in no acute distress. Head/Face: Normocephalic, atraumatic. Eyes: Pupils equal round and reactive to light, extra-ocular motions intact. Lids and lashes normal. Conjunctiva and sclera are non-icteric and not injected. Cornea within normal limits. Periorbital areas with no swelling, redness, or edema. ENT: Nares patent. No nasal discharge, no septal abnormalities noted. Tympanic membranes are normal and external auditory canals are clear. Oropharynx with no redness, swelling, or masses, exudates, or evidence of obstruction, uvula midline. Mucous membranes moist. Neck: Trachea midline, no thyromegaly or masses palpated, and no cervical lymphadenopathy. Supple, full range of motion without nuchal rigidity, or vertebral point tenderness. No Meningismus. Chest/axilla: Normal chest wall appearance and motion. Nontender with no deformity. No lesions are appreciated. Cardiovascular: Regular rate and rhythm with a normal S1 and S2. No gallops, murmurs, or rubs. Normal PMI, no JVD. No pulse deficits. Abdomen/GI: Soft, non-tender, with normal bowel sounds. No distension or tympany. No guarding or rebound. No evidence of tenderness throughout. Back: No spinal tenderness. No costovertebral tenderness. Full range of motion. Male : Normal genitalia with no discharge or lesions. Skin: Warm, dry with normal turgor. Normal color with no rashes, no lesions, and no evidence of cellulitis. MS/ Extremity: Pulses equal, no cyanosis. Neurovascular intact. Full, normal range of motion. Neuro: Awake and alert, GCS 15, oriented to person, place, time, and situation. Cranial nerves II-XII grossly intact. Motor strength 5/5 in all extremities. Sensory grossly intact. Cerebellar exam normal. Normal gait. Psych: Awake, alert, with orientation to person, place and time. Behavior, mood, and affect are within normal limits. 05:43 Respiratory: the patient does not display signs of respiratory distress, Respirations: no acute changes, labored breathing, is not present, Breath sounds: bronchial sounds, that are mild, are scattered, decreased breath sounds, that are mild, are scattered, Respiratory rate: 20 07:28 Musculoskeletal/extremity: DVT Exam: No signs of deep vein thrombosis. no pain, no osmin swelling, no tenderness, negative Homans' sign noted on exam, no appreciated bluish discoloration, no erythema, no increased warmth, Vital Signs: 05:11 BP 145 / 76; Pulse 85; Resp 20; Temp 98.9(O); Pulse Ox 99% on R/A; Weight 81.65 kg (R); km8 Height 5 ft. 7 in. (R); Pain 3/10; 07:20 BP 174 / 75; Pulse 104; Resp 20; Temp 102.9(O); Pulse Ox 95% on R/A; iw 07:56 BP 162 / 89; iw 08:30 Temp 100.7(O); iw 09:15 BP 154 / 74; Pulse 97; Resp 20 S; Temp 99.7(O); Pulse Ox 93% ; iw 09:42 Pulse Ox 88% on R/A; ld1 09:46 Pulse Ox 92% on 2 lpm NC; ld1 13:44 BP 134 / 53; Pulse 81; Resp 16; Pulse Ox 94% on R/A; iw 05:11 Body Mass Index 28.19 (81.65 kg, 170.18 cm) [facility] 05:11 Pain Scale: Adult km8 MDM: 05:27 Patient medically screened. [facility] 05:46 Differential diagnosis: viral Infection, bacterial infection, URI, bronchitis, osmin pneumonia UTI. Differential Diagnosis: Obstructed Airway Bronchitis Influenza Upper Respiratory Infection Sinusitis Pharyngitis Asthma Exacerbation Viral Syndrome Pneumonia. Data reviewed: vital signs, nurses notes, lab test result(s), EKG, radiologic studies, plain films. Consideration of Admission/Observation Escalation of care including admission/observation considered. I considered the following discharge prescriptions or medication management in the emergency department Medications were administered in the Emergency Department. See MAR. Independent interpretation of the following test(s) in the Emergency Department EKG: See my EKG interpretation above. Test considered but Not performed: CT: no ct chest. Historians other than the Patient: pt well informed. Care significantly affected by the following chronic conditions: Diabetes, Hypertension, cardiomyopathy, colon ca, cellulitis. Counseling: I had a detailed discussion with the patient and/or guardian regarding the historical points, exam findings, and any diagnostic results supporting the discharge/admit diagnosis, lab results, radiology results, the need for outpatient follow up, for definitive care, a family practitioner. 09:17 ED course: Patient COVID-positive, still tachypneic and 93% on room air. States rn breathing treatment did not help. Will admit for further care.. 05/26 04:59 Order name: CBC with Diff; Complete Time: 07:49 [facility] 05/26 04:59 Order name: Comprehensive Metabolic Panel; Complete Time: 07:49 [facility] 05/26 04:59 Order name: COVID-19/FLU A+B/RSV; Complete Time: 08:44 [facility] 05/26 05:40 Order name: BNP; Complete Time: 07:49 [facility] 05/26 05:40 Order name: Blood Culture Adult (2) [facility] 05/26 05:40 Order name: Troponin HS; Complete Time: 07:49 [facility] 05/26 05:40 Order name: Lactate w/ 2H reflex if indic.; Complete Time: 07:49 [facility] 05/26 04:59 Order name: Chest Pa And Lat (2 Views) XRAY; Complete Time: 08:00 [facility] 05/26 05:40 Order name: EKG; Complete Time: 05:41 [facility] 05/26 05:40 Order name: EKG - Nurse/Tech; Complete Time: 07:57 [facility] 05/26 07:28 Order name: PO challenge; Complete Time: 07:55 [facility]min Administered Medications: 07:40 Drug: Acetaminophen PO 1000 mg PO once Route: PO; iw 07:41 Drug: AZITHromycin PO 500 mg PO once Route: PO; iw 07:41 Drug: Levalbuterol Inhalation 3.75 mg Inhalation once Route: Inhalation; iw 07:41 Drug: Ipratropium Inhalation Aerosol 0.5 mg Inhalation once Route: Inhalation; iw 07:41 Drug: MethylPrednisoLONE IVP 125 mg IVP once Route: IVP; Site: right antecubital; iw 07:41 Drug: predniSONE PO 40 mg PO once Route: PO; iw 07:41 Drug: NS 0.9% IV 500 ml IV at bolus once Route: IV; Rate: bolus; Site: right iw antecubital; 07:41 Drug: Rocephin IV 1 grams IV at per protocol once; Given slow IV push per pharmacy iw instructions Route: IV; Rate: per protocol; Site: right antecubital; Disposition Summary: 05/26/23 12:09 Transfer Ordered Notes: Transfer Location: [facility] rn Reason: Higher level of care rn Condition: Stable(05/26/23 12:09) rn Problem: new(05/26/23 12:09) rn Symptoms: have improved(05/26/23 12:09) rn Accepting Physician: Dr. Antonio Santoyo(05/26/23 14:09) Diagnosis - SARS-associated coronavirus as the cause of diseases classified elsewhere(05/26/23 rn 12:09) - Dyspnea, unspecified(05/26/23 12:09) rn - Hypoxemia(05/26/23 12:09) rn Forms: - Medication Reconciliation Form rn - SBAR form rn Signatures: Dispatcher [employer] Luke Salazar MD MD cha Williams, Irene RN RN iw Noble Scott MD MD rn Botello, Elizabeth eb Marx, Katie RN RN km8 Corrections: (The following items were deleted from the chart) 12:08 09:18 Observation rn rn 12: 09:18 Scooby Palafox rn rn 12: 09:18 Telemetry/MedSurg (observation) rn rn 12: 09:18 Stable rn rn :18 new rn rn :01 03:18 have improved rn rn :18 Standard rn rn :18 rn rn :18 SARS-associated coronavirus as the cause of diseases classified elsewhere rn rn :18 Dyspnea, unspecified rn rn :18 Hypoxemia rn rn 12:39 12:09 Dr. cisco markham 14: 12:39 Dr. Antonio markham iw
--- NOTE | 2023-05-26 09:57 | P.HP ---
Patient History Date of Service: 05/26/23 Allergies No Known Allergies Allergy (Unverified 01/31/17 07:35) Home Medications: Aspirin [Aspirin EC 81 MG] 1 tab PO DAILY 01/31/17 Clopidogrel Bisulfate [Plavix*] 1 tab PO DAILY 01/31/17 Lisinopril [Zestril] 5 mg PO DAILY 01/31/17 Metformin HCl [Glucophage*] 850 tab PO BID 01/31/17 Tamsulosin HCl [Flomax] 1 tab PO BEDTIME 01/31/17 Azithromycin Tab [Zithromax*] 250 mg PO ZPAK #1 frank 06/12/19 Guaifenesin/Dextromethorphan [Robitussin Qdvcu-Kmogm-Arss Dm] 1 each PO Q6HR PRN #30 capsule 06/12/19 Isosorbide Mononitrate [Isosorbide Mononitrate ER] 3 tab PO DAILY 06/12/19 Latanoprost/Pf [Latanoprost 0.005% Eye Drop] 1 gtt OPTH BEDTIME 06/12/19 Methylprednisolone [Medrol dosepack] 4 mg PO DIRECTED #1 frank 06/12/19 Pantoprazole Sodium 20 mg PO DAILY 06/12/19 Pravastatin Sodium 20 mg PO BEDTIME 06/12/19 carvediloL [Carvedilol] 1 tab PO BID 06/12/19 - Past Medical/Surgical History Diabetic: Yes -: CAD -: HTN -: Esophageal varicies -: elevated liver fxn test -: Coronary Sv arteriosclerosis -: rectal bleeding -: DM-NIDDM -: Open angle glaucoma -: cardiomyopathy -: benign neoplasm of colon -: cellulitis -: HLD -: Appendectomy -: Colonosccopy -: Stents - Family History Father -: Hypertension Mother -: Hypertension - Social History Alcohol use: No CD- Drugs: No Caffeine use: Yes Physical Examination - Studies Laboratory Data (last 24 hrs) 05/26/23 05/26/23 07:10 07:10 WBC 7.10 Hgb 10.3 L Hct 29.8 L Plt Count 109 L Sodium 136 Potassium 3.9 BUN 13 Creatinine 1.09 Glucose 154 H Total Bilirubin 2.6 H AST 20 ALT 18 Alkaline Phosphatase 68 Assessment and Plan - Advance Directives Does patient have a Living Will: Yes Does patient have a Durable POA for Healthcare: Yes
[2023-05-26 15:43] VITALS: BP 134/53; TEMP 99.7; O2SAT 94
== END ==
LOC: ER 04:52
DX: U07.1 COVID-19 (principal); R06.00 Dyspnea, unspecified; R09.02 Hypoxemia; E11.9 Type 2 diabetes mellitus without complications; I10 Essential (primary) hypertension; Z79.82 Long term (current) use of aspirin
CPT/HCPCS: 93005; 87040 ×2; 85025; 36415; 83605; 84484; 80053; 83880; 0241U; 71046; 96375; 96374; 99285; J7512; J7614; J7644; J2930; J7040; J0696